=== PATIENT | female | born 1945 | race African-American/Black ===

== ENCOUNTER 2019-01-23 13:41 | Inpatient (IN) | payer MEDICARE ==
[~2019-01-23] VITALS: Ht 162.6 cm; Wt 105.7 kg
[2019-01-23] VITALS (9 sets, daily range): BP systolic 81–131; BP diastolic 45–75
--- NOTE | 2019-01-23 13:45 | NUR ---
PT PLACED ON CARESCAPE ON DOCUMENTED SETTINGS, ALARMS ARE ON AND FUNCTIONAL PTS TRACH PORTEX 8 IS SECURE, PT IN HF AWAKE SON AT BEDSIDE BS [employer]ORY SUPERVISOR OBTAINED REPLACED PTS EXSISTING INNER CANNULA WHICH WAS PART. OBSTRUCTED BMV HOB VENT PLUGGED INTO RED OUTLET Addendum: 01/23/19 at 1410 by Alethea Montanez RT 1345 CORRECT TIME
--- NOTE | 2019-01-23 13:45 | NUR ---
PT TO BED 10 VIA EMS, RT AT BEDSIDE. FAMILY AT BEDSIDE.
--- NOTE | 2019-01-23 14:01 | NUR ---
ER MD AT BEDSIDE TO EVALUATE PT AND SPEAK TO FAMILY
--- NOTE | 2019-01-23 14:19 | NUR ---
PCXR AT BEDSIDE
--- NOTE | 2019-01-23 14:34 | NUR ---
EKG IN PROGRESS
--- NOTE | 2019-01-23 14:48 | NUR ---
RT AT BEDSIDE
[2019-01-23 14:49] LABS: BASOPHILS # (AUTO) 0.1 K/uL (0.00-0.22); BASOPHILS % (AUTO) 1.1 % (0.0-2.0); EOSINOPHILS # (AUTO) 0.1 K/uL (0-0.4); EOSINOPHILS % (AUTO) 2.8 % (0.0-4.0); HEMATOCRIT 29.5 % (36-48); HEMOGLOBIN 9.4 g/dL (12.0-16.0); LYMPHOCYTES % (AUTO) 19.1 % (20.5-51.1); MEAN CORPUSCULAR HEMOGLOBIN 26 pg (27-31); MEAN CORPUSCULAR HGB CONC 32 g/dL (33-37); MEAN CORPUSCULAR VOLUME 80.3 fL (80-94); MONOCYTES # (AUTO) 0.6 K/uL (0.8-1.0); MONOCYTES % (AUTO) 10.9 % (1.7-9.3); NEUTROPHILS # (AUTO) 3.5 K/uL (1.8-7.7); NEUTROPHILS % (AUTO) 66.1 % (42.2-75.2); PLATELET COUNT (AUTO) 270 K/uL (140-450); RED BLOOD CELL COUNT(AUTO) 3.67 MIL/uL (4.20-5.40); WHITE BLOOD COUNT (AUTO) 5.3 K/uL (4.8-10.8)
[2019-01-23 15:02] LABS: ANION GAP 8.5 (8-16); CARBON DIOXIDE 31.2 mmol/L (21-32); CHLORIDE 104 mmol/L (98-107); CREATININE 0.7 mg/dL (0.6-1.3); GLUCOSE 114 mg/dL (74-106); POTASSIUM 3.7 mmol/L (3.5-5.1); SODIUM SERUM 140 mmol/L (136-145); UREA NITROGEN, BLOOD 24 mg/dL (7-18)
[2019-01-23 15:08] LABS: ALBUMIN 2.7 g/dL (3.4-5.0); ASPARTATE AMINOTRANSFERASE 43 U/L (15-37); TOTAL BILIRUBIN 0.9 mg/dL (0.0-1.0)
[2019-01-23] MEDS ORDERED: NITROGLYCERIN 2% 1 GM PKT TP ONE (15:25)
[2019-01-23] MEDS ORDERED: ASPIRIN 81 MG TAB.CHEW GT ONE (15:35)
--- NOTE | 2019-01-23 16:26 | NUR ---
DR. YUEN AT BEDSIDE TO UPDATE PT AND PT'S ON PLAN OF CARE. PT SUCTIONED, TOLERATED WELL.
[2019-01-23 16:47] LABS: APPEARANCE,URINE CLEAR (CLEAR); BILIRUBIN,URINE NEGATIVE (NEGATIVE); BLOOD, URINE 1+ (NEGATIVE); COLOR,URINE YELLOW (YELLOW); LEUKOCYTE ESTERASE ,URINE NEGATIVE (NEGATIVE); NITRITE, URINE NEGATIVE (NEGATIVE); PH,URINE 7.5 (5.0-9.0); UGLUCOSE NEGATIVE (NEGATIVE)
[2019-01-23 16:49] LABS: RBC,URINE 3-10 (FEW) /HPF (0-5); WBC,URINE 0-5 (RARE) /HPF (0-5)
[2019-01-23] MEDS ORDERED: DOCUSATE SODIUM 100 MG GELCAP PO PRN ×2 (16:50→17:30)
[2019-01-23] MEDS ORDERED: ONDANSETRON 4 MG/2 ML VIAL IM/IVP PRN (16:50)
[2019-01-23] MEDS ORDERED: FUROSEMIDE 20 MG/2 ML VIAL IVP ONE (16:55)
[2019-01-23] MEDS ORDERED: HEPARIN PER PHARMACY MC PRN (17:00)
[2019-01-23] MEDS ORDERED: hePARIN / DEXT 5% PREMIX 250 ML IV SCH ×2 (17:00→18:00)
[2019-01-23] MEDS ORDERED: ALBUTEROL SULFATE/IPRATROPIU 3 ML SOL IH PRN (17:00)
[2019-01-23] MEDS ORDERED: FUROSEMIDE 40 MG/4 ML VIAL IVP SCH (17:10)
[2019-01-23 17:16] LABS: PROTHROMBIN TIME 11.8 secs (10.8-13.4)
[2019-01-23] MEDS ORDERED: DOCU-299 PO (17:21)
[2019-01-23] MEDS ORDERED: LANS15EC28 GT (17:21)
[2019-01-23] MEDS ORDERED: PRO5 GT (17:21)
[2019-01-23] MEDS ORDERED: METO10TA10 GT (17:21)
[2019-01-23] MEDS ORDERED: KEP500L GT (17:21)
--- NOTE | 2019-01-23 17:25 | NUR ---
PT EVALUATED BY DR. GRANT. ADMINISTERED LASIX 40 MG IV X [address] GRANT VERBAL ORDER. LASIX 20 MG IV NOT GIVEN PER DR. GRANT VERBAL ORDER.
[2019-01-23] MEDS ORDERED: NITROGLYCERIN 0.4 MG TAB SL ONE (17:30)
[2019-01-23 17:35] LABS: PHOSPHORUS 3.8 mg/dL (2.5-4.9); THYROID STIMULATING HORMONE 3.51 uIU/mL (0.34-3.74)
--- NOTE | 2019-01-23 18:30 | NUR ---
RECEIVED PATIENT FROM MANAGER AGRICULTURE, HARLAN, FOR CONTINUITY OF CARE. PATIENT IS AAOX4, ABLE TO MAKE NEEDS KNOWN. SKIN INTACT, PERIPHERAL IV SITE TO L. FA 22 GAUAGE, ASYMPTOMATIC AND PATENT. TRACH TO VENT, BREATHING EVEN AND UNLABORED. SR ON MONITOR. SHE HAS J TUBE IN PLACE. TRUONG CATHETER IN PLACE. NO SIGNS OF DISTRESS NOTED, HOB IS 30 DEGREES, SAFETY PRECAUTIONS AND ALARMS IN PLACE. CALL LIGHT WITHIN REACH. SON AT BEDSIDE. WILL CONTINUE TO MONITOR
--- NOTE | 2019-01-23 18:34 | NUR ---
PT WAS TRANSFER FROM ER TO ICU 7 , AMBU BAG , NO INCIDENTS OR DISTRESS.PT WAS PLACED ON THE VENT, VENT CK DONE, NO DISTRESS NOTED, SON AT BED SIDE
--- NOTE | 2019-01-23 18:39 | NUR ---
Patient will be admitted to care of ICU. Admited to DR. FOUNTAIN. Will go to room 7. Belongings list completed. Report to PRICE KAMARA. PT CYNTHIA FRIED AT BEDSIDE.
--- NOTE | 2019-01-23 19:30 | NUR ---
SBAR REPORT RECEIVED FROM DAY RN, PT STABLE, TRACH TO VENT, NSR ON THE MONITOR. ABLE TO FOLLOW SIMPLE COMMANDS. PITTING EDEMA TO ALL OVER HER BODY, TRUONG CATHETER INTACT AND DRAINING WELL, GT INTACT AND CLAMPED AT THIS TIME. PT COMFORTABLE, US TECH WILL BE HERE SHORTLY TO DO ABDOMEN US. WILL CONTINUE TO MONITOR CLOSELY.
[2019-01-23] MEDS: ALBUTEROL SULFATE/IPRATROPIU 3 ML SOL IH SCH (19:55)
[2019-01-23] MEDS: METOPROLOL 25 MG TAB PO SCH (21:00)
--- NOTE | 2019-01-23 21:00 | NUR ---
US COLON IS AT THE BEDSIDE, CALLED PT'S SON AND ASSISTED TO FIND OUT THE STATUS OF PNEUMO VAC AND FLU VAC. LEFT A VOICE MAIL TO PT'S SON'S NICHOLE CELL PHONE. ASSISTED STATED THAT THEY DO NOT HAVE THE INFORMATION
[2019-01-23] MEDS: levETIRAcetam 100 MG/ML ORASYR GT SCH (21:11)
[2019-01-23] MEDS: NACL 0.9% 1,000 ML IV SCH (21:11)
[2019-01-23] MEDS: METOCLOPRAMIDE 10 MG TAB GT SCH (21:12)
--- NOTE | 2019-01-23 22:15 | NUR ---
DR. FAJARDO CALLED AND NOTIFIED OF ELEVATED TROPONIN OF 0.190. NO NEW ORDER AT THIS TIME, WILL CONTINUE TO MONITOR CLOSELY.
[2019-01-23] MEDS ORDERED: LACTULOSE 20 GM/30 ML UDC PO SCH (22:30)
[2019-01-24] VITALS (20 sets, daily range): BP systolic 90–138; BP diastolic 57–82
[2019-01-24] MEDS: LORazepam 2 MG/ML VIAL IM/IVP PRN (00:18)
--- NOTE | 2019-01-24 01:00 | NUR ---
PT WAS AGITATED, PULLING OFF TUBES AT 0005, ATIVAN 1MG IVP GIVEN AT 0018, PT ASLEEP, CASIE AND COOPERATIVE AT THIS 0100 TIME.
--- NOTE | 2019-01-24 02:41 | NUR ---
VSS, NO S/S OF ANY ACUTE DISTRESS. WILL CONTINUE TO MONITOR CLOSELY.
[2019-01-24 03:42] LABS: PROTHROMBIN TIME 12.6 secs (10.8-13.4)
--- NOTE | 2019-01-24 05:03 | NUR ---
PT STABLE, VSS. ASLEEP. WILL CONTINUE TO MONITOR CLOSELY.PTT 54.1, NO CHANGES IN HEPARIN DRIP. CONTINUE TO 900UNITS/ HR.
--- NOTE | 2019-01-24 05:25 | NUR ---
PT'S PTT 54.1, PT ON HEPARIN DRIP.
[2019-01-24] MEDS: LANSOPRAZOLE 30 MG CAPDR GT SCH (05:36)
[2019-01-24] MEDS: METOCLOPRAMIDE 10 MG TAB GT SCH (05:36)
[2019-01-24 05:49] LABS: ANION GAP 10.7 (8-16); CARBON DIOXIDE 30.1 mmol/L (21-32); CHLORIDE 105 mmol/L (98-107); CREATININE 0.6 mg/dL (0.6-1.3); GLUCOSE 89 mg/dL (74-106); POTASSIUM 3.8 mmol/L (3.5-5.1); SODIUM SERUM 142 mmol/L (136-145); UREA NITROGEN, BLOOD 22 mg/dL (7-18)
[2019-01-24 05:50] LABS: MAGNESIUM 1.8 mg/dL (1.8-2.4); PHOSPHORUS 3.9 mg/dL (2.5-4.9)
[2019-01-24 06:07] LABS: BASOPHILS # (AUTO) 0.1 K/uL (0.00-0.22); BASOPHILS % (AUTO) 2.9 % (0.0-2.0); EOSINOPHILS # (AUTO) 0.1 K/uL (0-0.4); EOSINOPHILS % (AUTO) 2.7 % (0.0-4.0); HEMATOCRIT 28.4 % (36-48); HEMOGLOBIN 9.1 g/dL (12.0-16.0); LYMPHOCYTES # (AUTO) 1.1 K/uL (2.5-16.5); LYMPHOCYTES % (AUTO) 23.3 % (20.5-51.1); MEAN CORPUSCULAR HEMOGLOBIN 26 pg (27-31); MEAN CORPUSCULAR HGB CONC 32 g/dL (33-37); MEAN CORPUSCULAR VOLUME 79.9 fL (80-94); MONOCYTES # (AUTO) 0.7 K/uL (0.8-1.0); MONOCYTES % (AUTO) 14.1 % (1.7-9.3); NEUTROPHILS # (AUTO) 2.8 K/uL (1.8-7.7); PLATELET COUNT (AUTO) 250 K/uL (140-450); RED BLOOD CELL COUNT(AUTO) 3.55 MIL/uL (4.20-5.40); WHITE BLOOD COUNT (AUTO) 4.9 K/uL (4.8-10.8)
[2019-01-24] MEDS: ALBUTEROL SULFATE/IPRATROPIU 3 ML SOL IH SCH ×3 (06:29→19:18)
--- NOTE | 2019-01-24 06:29 | NUR ---
RECEIVED PT ON CARESCAPE ON DOCUMENTED SETTINGS, ALARMS ARE ON AUDIBLE, PTS TRACH PORTEX 8 IS SECURE, PTIN HF ASLEEP ,HHN GIVEN I\L WITH 3 MG DUONEB, BMV HOB , VENT PLUGGED INTO RED OUTLET
--- NOTE | 2019-01-24 08:00 | NUR ---
PATIENT AWAKE, ALERT AND ORIENTED TO PERSON, PLACE, SITUATION AND TIME. WITH TRACHEOSTOMY TO VENTILATOR AC 12 TIDAL VOLUME 500 FIO2 30% PEEP 5, CLEAR BREATH SOUNDS ON ALL LUNG KAYE ON AUSCULTATION, SINUS RHYTHM ON MONITOR, WITH GTUBE AND PATIENT RECEIVEING JEVITY 40 ML/HR. GASTRIC RESIDUAL CHECKED AND NO ASPIRATES, ABDOMEN ROUND, SOFT, WITH TRUONG CATHETER YELLOW CLEAR URINE NOTED IN THE DRAINAGE BAG, SKIN INTACT WITH GENERALIZED NON PITTING EDEMA, PERIPHERAL LINES: GAUGE 20 AT RIGHT ARM WITH NORMAL SALINE INFUSING 10ML/HR., GAUGE 18 RIGHT HAND HEPARING DRIP INFUSING 900 UNITS/HR. BOTH SITES ASYMPTOMATIC. CALL [facility] WITHIN REACH
--- NOTE | 2019-01-24 08:37 | NUR ---
PATIENT HAS BEEN SCREENED AND CATEGORIZED HIGH NUTRITION RISK. PATIENT WILL BE SEEN WITHIN 1-2 DAYS OF ADMISSION. 01/24/19-01/25/[address]
[2019-01-24] MEDS ORDERED: NON-FORMULARY ITEM (Lansoprazole* (Prevacid 24Hr*) 30 MG) GT SCH (09:00)
--- NOTE | 2019-01-24 09:00 | NUR ---
PATIENT COMPLAINING OF GENERALIZED BODY PAIN ADULT SCORE=4 AND PATIENT ASKED FOR PAIN MEDICATION. WILL MEDICATE WITH PRN NORCO AND CONTINUE TO MONITOR(SEE PAIN REASSESSMENT)
[2019-01-24] MEDS: LISINOPRIL 5 MG TAB PO SCH (09:04)
[2019-01-24] MEDS: ASPIRIN 81 MG TAB.CHEW PO SCH (09:04)
[2019-01-24] MEDS: HYDROcodone/APAP 5/325 MG 1 TAB TAB PO PRN (09:04)
[2019-01-24] MEDS: levETIRAcetam 100 MG/ML ORASYR GT SCH ×2 (09:05→20:35)
[2019-01-24] MEDS: METOPROLOL 25 MG TAB PO SCH ×2 (09:05→22:03)
[2019-01-24] MEDS: FUROSEMIDE 40 MG/4 ML VIAL IVP SCH ×2 (09:06→17:26)
[2019-01-24 10:56] LABS: CHOL/HDL RATIO 2.8 (1-4.5)
--- NOTE | 2019-01-24 11:23 | NUR ---
CHANGED PT OT A/C PRVC PT HAD PEAK PRESSURES OF 56 RR 12 VT 500 PEEP 5 I TIME .80 PP WENT DOWN
--- NOTE | 2019-01-24 11:50 | NUR ---
DR. CUEVAS ROUNDED AND ORDERED TO DISCONTINUE HEPARIN DRIP
--- NOTE | 2019-01-24 12:00 | NUR ---
DR. CAMPBELL HERE FOR ROUNDS, UPDATED OF PATIENT'S STATUS. CONTINUE SAME PLAN OF CARE PER DR. CAMPBELL
[2019-01-24] MEDS: METOCLOPRAMIDE 10 MG/10 ML SYRP UDC PO SCH ×3 (13:00→20:35)
--- NOTE | 2019-01-24 13:08 | NUR ---
Sawmilling Operator Note: Per Mabel from [facility] , patient is not on a 7 day bed hold. She told me her groundwater programs director does not want to accept patient back upon discharge because patient's family is problematic. Mabel stated she will check with her deputy administrator if they will accept patient upon discharge and let me know.
[2019-01-24] MEDS ORDERED: LACTULOSE 20 GM/30 ML UDC PO SCH (14:00)
--- NOTE | 2019-01-24 14:02 | NUR ---
01/24/19 RD INITIAL ASSESSMENT COMPLETED PLEASE REFER TO NUTRITION ASSESSMENT UNDER CARE ACTIVITY FOR ESTIMATED NUTRITIONAL NEEDS. 1. RECOMMEND VITAL 1.2 AT 60 ML/HR AND 30 ML WATER FLUSH Q8H -THIS WILL PROVIDE A VOLUME OF 1440 ML, 1728 KCAL, 108 GRAM PROTEIN, AND 1258 ML OF FLUID. IT MEETS 100% OF THE ENERGY NEED AND 100% OF THE PROTEIN NEED. 2. RD TO FOLLOW-UP 2-3 DAYS, HIGH RISK AARON JIN, LISS
--- NOTE | 2019-01-24 15:00 | NUR ---
DR. HOUSTON HERE FOR ROUNDS. INFORMED OF DR. CAMPBELL'S RECOMMENDATION FOR LASIX DRIP AND ALDACTONE. DR. HOUSTON ORDERED ABG NOW, ST EVALUATION AND CHEST XRAY FOR TOMORROW
--- NOTE | 2019-01-24 15:18 | NUR ---
G REPORTED TO DR CHRISTIAN NO CHANGES
--- NOTE | 2019-01-24 15:51 | NUR ---
DR. HOUSTON BUILDING SURVEYOR CALLED THIS RN AND ORDERS RECEIVED DIAMOX 300 MGS PER GTUBE BID AND ONE DOSE NOW-READBACK AND VERIFIED
[2019-01-24] MEDS ORDERED: acetaZOLAMIDE 250 MG TAB PO SCH ×2 (15:55→21:00)
--- NOTE | 2019-01-24 15:59 | NUR ---
PAGED DR. HOUSTON THROUGH HIS EXCHANGE SPOKE TO KAILA. REGARDING NO DIAMOX 250 MG IN PHARMACY
--- NOTE | 2019-01-24 16:05 | NUR ---
DR. HOUSTON CALLED BACK AND CHANGE ORDER TO START DIAMOX 250 MGS PER GTUBE NOW AND DIAMOX 250 MGS BID VIA GTUBE-READBACK AND VERIFIED
[2019-01-24] MEDS ORDERED: acetaZOLAMIDE 250 MG TAB GT SCH ×2 (16:10→16:55)
--- NOTE | 2019-01-24 16:23 | NUR ---
PM CARE, ORAL CARE, CATHETER CARE RENDERED. ROUTINE REPOSITIONING. PATIENT TOLERATED
[2019-01-24] MEDS: NACL 0.9% 1,000 ML IV SCH (17:26)
--- NOTE | 2019-01-24 17:56 | NUR ---
TELEPHONED KATLYN MORALES TO ASK FOR PATIENT'S PNEUMONIA AND FLU VACCINE HISTORY BUT WAS ADVISED TO CALL TOMORROW DURING MEDICAL RECORDS OFFICE HOURS
--- NOTE | 2019-01-24 19:12 | NUR ---
REPORT GIVEN TO ICU NIGHT RN
--- NOTE | 2019-01-24 19:17 | NUR ---
RECEIVED REPORT FROM MORNING SHIFT RN, DANUTA, FOR CONTINUITY OF CARE. PT IS NONVERBAL AT BASELINE, ABLE TO MOUTH WORDS AND MAKE NEEDS KNOWN. LUNG SOUND CLEAR/DIMINISHED ON UPPER/LOWER BILATERAL LOBES. ETT TO VENT, FIO2=30, QO=928, RR=12, Tinsp=0.80, PEEP=5, PMAX=2. RT HANI AT BEDSIDE TO SEE PT, SR ON ACID TENDER. BOWEL SOUND ACTIVE X4, ABODMEN IS LARGE/ROUND. GTUBE INTACT, NO RESIDUAL, JEVITY 1.2 AT 60ML/HR. TRUONG IN PLACE. 20 GAUGE PIV ON RIGHT ARM, AND 18 GAUGE RIGHT HAND PIV INFUSING 10CC/HR OF NS. TRUONG CATH IN PLACE, URINE IS CLEAR/YELLOW IN COLOR. SKIN INTACT, EDEMATOUS WITH 2+ PITTING EDEMA ON BILATERAL LEGS/FEET. HOB ELEVATED ABOVE 30 DEG, STANDARD PRECAUTIONS. AFEBRILE, TEMP 97.2, QX=792/76, HR=77, RR=14, SATING 97%.
[2019-01-24] MEDS: ATORVASTATIN 20 MG TAB PO SCH (20:36)
[2019-01-24] MEDS: acetaZOLAMIDE 250 MG TAB GT SCH (20:36)
--- NOTE | 2019-01-24 21:30 | NUR ---
BED BATH AND VAP ORAL CARE PROVIDED TO PATIENT, REPOSITIONED. PT IS ABLE TO MAKE NEEDS KNOWN MOUTHING WORDS OR WRITING ON A CLIPBOARD. APPEARS CALM AND RELAXED AT THIS TIME.
--- NOTE | 2019-01-24 21:54 | NUR ---
CALLED DR. SHAH, UPDATED ON PT CONDITION, STATED OK TO GIVE HEPARIN AND LOPRESSOR. WILL CARRY OUT.
[2019-01-24] MEDS: MORPHINE SULFATE 2 MG/ML SYR IVP PRN (22:24)
[2019-01-25] VITALS (12 sets, daily range): BP systolic 107–124; BP diastolic 58–86
--- NOTE | 2019-01-25 00:38 | NUR ---
BED BATH PROVIDED AFTER LARGE, LOOSE STOOL BM. FULL BED LINEN CHANGE WITH FRESH PADS PROVIDED. REPOSITIONED, HOB AND BILATERAL LEGS ELEVATED. VSS, SUCTIONING PROVIDED X2. VAP ORAL CARE. TRUONG CATH CARE KIT PERFORMED. PT IS SLEEPING AT THIS TIME, CALL LIGHT WITHIN REACH.
--- NOTE | 2019-01-25 01:55 | NUR ---
EMPTIED 1000ML URINE OUTPUT, URINE IS YELLOW-LIGHT KAYA IN COLOR.
--- NOTE | 2019-01-25 03:11 | NUR ---
PT AWAKENED AND REQUESTED SUCTIONING X2, REPOSITIONED W/ PILLOW SUPPORT ON LEFT SIDE. NS INFUSING AT 10CC/HR, AND JEVITY 1.2 AT 60ML/HR TO GTUBE, NO RESIDUAL NOTED.
--- NOTE | 2019-01-25 05:15 | NUR ---
MALI AT BEDSIDE TO DRAW LABS.
[2019-01-25] MEDS: LANSOPRAZOLE 30 MG CAPDR GT SCH (05:28)
[2019-01-25] MEDS: METOCLOPRAMIDE 10 MG/10 ML SYRP UDC PO SCH ×3 (05:28→20:40)
[2019-01-25 06:14] LABS: BASOPHILS # (AUTO) 0.1 K/uL (0.00-0.22); BASOPHILS % (AUTO) 1.5 % (0.0-2.0); EOSINOPHILS % (AUTO) 0.8 % (0.0-4.0); HEMATOCRIT 29.3 % (36-48); HEMOGLOBIN 9.2 g/dL (12.0-16.0); LYMPHOCYTES % (AUTO) 18.2 % (20.5-51.1); MEAN CORPUSCULAR HEMOGLOBIN 25 pg (27-31); MEAN CORPUSCULAR HGB CONC 32 g/dL (33-37); MEAN CORPUSCULAR VOLUME 79.9 fL (80-94); MONOCYTES # (AUTO) 0.6 K/uL (0.8-1.0); MONOCYTES % (AUTO) 11.2 % (1.7-9.3); NEUTROPHILS # (AUTO) 3.9 K/uL (1.8-7.7); NEUTROPHILS % (AUTO) 68.3 % (42.2-75.2); PLATELET COUNT (AUTO) 271 K/uL (140-450); RED BLOOD CELL COUNT(AUTO) 3.67 MIL/uL (4.20-5.40); RED CELL DISTRIBUTION WIDTH 19.4 % (11.6-13.7); WHITE BLOOD COUNT (AUTO) 5.8 K/uL (4.8-10.8)
[2019-01-25] MEDS: ALBUTEROL SULFATE/IPRATROPIU 3 ML SOL IH SCH ×3 (06:44→19:41)
[2019-01-25 07:35] LABS: ANION GAP 11.6 (8-16); CARBON DIOXIDE 29.8 mmol/L (21-32); CHLORIDE 105 mmol/L (98-107); CREATININE 0.8 mg/dL (0.6-1.3); GLUCOSE 103 mg/dL (74-106); POTASSIUM 3.4 mmol/L (3.5-5.1); SODIUM SERUM 143 mmol/L (136-145); UREA NITROGEN, BLOOD 25 mg/dL (7-18)
--- NOTE | 2019-01-25 07:35 | NUR ---
GAVE REPORT TO MORNING SHIFT PRICE TIPTON.
--- NOTE | 2019-01-25 07:36 | NUR ---
RECEIVED REPORT FROM LON THRASHER
[2019-01-25 07:39] LABS: PHOSPHORUS 4.4 mg/dL (2.5-4.9)
[2019-01-25] MEDS ORDERED: PROBIOTIC SCREEN 1 EA MISC MC PRN (08:00)
--- NOTE | 2019-01-25 08:00 | NUR ---
PATIENT AWAKE, ALERT AND ORIENTED TO PERSON, PLACE, SITUATION AND TIME. WITH TRACHEOSTOMY TO VENTILATOR AC/PRVC 12 TIDAL VOLUME 500 FIO2 30% PEEP 5, CLEAR BREATH SOUNDS ON ALL LUNG KAYE ON AUSCULTATION, SINUS RHYTHM ON MONITOR, WITH GTUBE AND PATIENT RECEIVEING JEVITY 60 ML/HR. GASTRIC RESIDUAL CHECKED AND NO ASPIRATES, ABDOMEN ROUND, SOFT, WITH TRUONG CATHETER YELLOW CLEAR URINE NOTED IN THE DRAINAGE BAG, SKIN INTACT WITH GENERALIZED NON PITTING EDEMA, PERIPHERAL LINES: GAUGE 20 AT LEFTT ARM WITH NORMAL SALINE INFUSING 10ML/HR., GAUGE 18 RIGHT HAND HEPARING DRIP INFUSING 900 UNITS/HR. BOTH SITES ASYMPTOMATIC. CALL [facility] WITHIN REACH
[2019-01-25] MEDS: ASPIRIN 81 MG TAB.CHEW PO SCH (08:36)
[2019-01-25] MEDS: ACETAMINOPHEN 325 MG TAB PO PRN ×2 (08:36→18:07)
[2019-01-25] MEDS: LISINOPRIL 5 MG TAB PO SCH (08:37)
[2019-01-25] MEDS: METOPROLOL 25 MG TAB PO SCH ×2 (08:37→20:39)
[2019-01-25] MEDS: SPIRONOLACTONE 25 MG TAB PO SCH (08:37)
[2019-01-25] MEDS: levETIRAcetam 100 MG/ML ORASYR GT SCH ×2 (08:38→20:40)
[2019-01-25] MEDS: LACTOBACILLUS RHAMNOSUS GG 1 EACH CAP PO SCH (08:39)
[2019-01-25] MEDS: acetaZOLAMIDE 250 MG TAB GT SCH ×2 (08:47→20:39)
[2019-01-25] MEDS: FUROSEMIDE 40 MG/4 ML VIAL IVP SCH ×2 (08:47→17:07)
--- NOTE | 2019-01-25 09:20 | NUR ---
DR. REYES AT BEDSIDE EXPLAINING ABOUT PATIENT'S PLAN OF CARE TO PATIENT'S SON
--- NOTE | 2019-01-25 09:31 | NUR ---
DR. HOUSTON AT BEDSIDE
[2019-01-25] MEDS ORDERED: POTASSIUM CHLORIDE 20% 40 MEQ/15 ML UDC GT SCH (10:00)
--- NOTE | 2019-01-25 10:30 | NUR ---
PHYSICAL THERAPIST AT BEDSIDE
--- NOTE | 2019-01-25 11:42 | NUR ---
CALLED KATLYN TEXARKANA FOR PATIENT'S POLST, PER AARON FROM MEDICAL RECORDS SHE WILL FAX A COPY.
[2019-01-25] MEDS ORDERED: LACTULOSE 20 GM/30 ML UDC PO SCH (11:45)
--- NOTE | 2019-01-25 11:48 | NUR ---
PER [facility] RN NO RECORDS FOR PNEUMONIA AND FLU VACCINES DUE TO PATIENT WAS ON ANTIBIOTIC.
--- NOTE | 2019-01-25 11:50 | NUR ---
Faxed clinicals to Mary from [facility].
--- NOTE | 2019-01-25 12:16 | NUR ---
FOLLOWED UP PHARMACY STAFF JESSICA TO SEND A STOCK OF [email or web address]
[2019-01-25] MEDS: PIPER/TAZO 3.375GM/D5W PREMIX 50 ML IV SCH ×3 (12:31→23:13)
--- NOTE | 2019-01-25 16:00 | NUR ---
PM CARE RENDERED, ORAL CARE, CATHETER CARE AND ROUTINE REPOSITIONING. PATIENT TOLERATED
--- NOTE | 2019-01-25 16:51 | NUR ---
PATIENT'S SON CORKY AT BEDSIDE
[2019-01-25] MEDS: NACL 0.9% 1,000 ML IV SCH (17:08)
--- NOTE | 2019-01-25 18:28 | NUR ---
PAGED PT DIRECTOR BY ICU CN TO FOLLOW UP SPEECH THERAPIST NOT YET HERE. UPDATED PATIENT'S SON CORKY. ALSO ACCORDING TO SON HE WILL FIND OUT TOMORROW REGARDING PATIENT'S FLU AND PNEUMONIA VACCINE HISTORY
--- NOTE | 2019-01-25 18:55 | NUR ---
SPEECH THERAPIST AT BEDSIDE. TELEPHONED PATIENT'S SON CORKY TO UPDATE
--- NOTE | 2019-01-25 18:59 | NUR ---
REHAB IS HERE TO DO A SWALLOW EVAL. PLACED PASSY LISA VALVE ON PATIENT AND LET AIR OUIT OF THE CUFF..PATIENT STARTED TO TALK AT THIS TIME.
--- NOTE | 2019-01-25 19:30 | NUR ---
RECEIVED REPORT FROM MORNING RN FOR CONTINUITY OF CARE. VS STABLE AT THIS TIME. PT DOES NOT APPEAR TO BE EXPERIENCING ANY DISCOMFORT. EYE OPENING SPONTANEOUS. DENIES PAIN AT THIS TIME. PT ABLE TO MAKE NEEDS KNOWN AND TO FOLLOW COMMANDS. LUNG SOUNDS RHONCHI. PT TRACH TO VENT WITH SETTINGS: AC 12, FIO2 30%, TV 500 AND PEEP 5. NO SOB NOTED. S1+S2 HEARD. PULSES ARE PALPABLE IN ALL EXTREMITIES. SR ON MONITOR. ABDOMEN ROUND, SOFT AND NONDISTENDED. GTUBE IN PLACE. TUBE FEEDING RUNNING AT 60ML/HR WITH NO RESIDUAL. BS ACTIVE IN ALL QUADRANTS. TRUONG CATHETER IN PLACE. DRAINING CLEAR AND YELLOW URINE. RECEIVED PT WITH PERIPHERAL IV ACCESS ON LEFT FOREARM 20G AND RIGHT HAND 18G. LINES ARE PATENT, INTACT, AND ASYMPTOMATIC. HOB AT 30 DEGREES. ALL SAFETY PRECAUTIONS ARE IN PLACE. WILL CONTINUE TO MONITOR PT.
--- NOTE | 2019-01-25 19:32 | NUR ---
* ST NOTE * Pt seen at bedside w/nsg, RT & grandson present. Pt alert, cooperative and engaged throughout session, reporting no c/o pain at this time. RT suctioning pt at this time. RT then deflating pt's trach cuff and placing PMV in place for first time since admission to [facility] at this time. Pt tolerating PMV well, and requiring maximal verbal, tactile & visual cueing to demonstrate phonation via verbal speech. Pt then presenting with expressive language via verbal speech at the word and phrase levels. Bedside dysphagia and oral mechanism exams completed. See evaluation report for further details. Pt thus tolerating 2/2 alternating PO trials of puree apple sauce as well as 3/3 alternating PO trials of nectar-thickened apple juice, all 3-5 CCs at a time via a spoon w/o s/s of aspiration. Pt however reporting difficulty breathing at this time, w/clinician observing pt's 02 saturation decreasing to 84-86. RT then increasing pt's vent settings to 100%, but pt still unable to return 02 sats up to 90<. RT thus removing PMV and re-inflating pt's trach cuff at this time. Pt, grandson, & nsg education completed re: pt appearing to tolerate puree textures w/NTL at this time w/only mild dysphagia, but cannot tolerate trach cuff deflation nor PMV at this time, which are required for pt to safely eat/drink PO, w/pt, grandson & nsg agreeable. Pt, grandson & nsg education completed re: clinician recommending beginning trach cuff deflation & PMV trials to aid pt in building tolerance of PMV to at least [address] in order for pt to safely begin eating/drinking PO, w/pt, caregiver/nsg and grandson verbalizing understanding and agreement w/clinician's recommendations. ST to follow up 1-2x/week for 1 week to address cuff deflation & PMV trials to further assess pt's readiness for PO intake. Pt, grandson, & caregivers/nsg education completed re: results of evaluation; benefits of receiving skilled [employer] services; POC; and prognosis for improvement; with pt, grandson & caregivers/nsg verbalizing understanding and agreement w/clinician's recommendations. Recommend: - CONTINUE NPO - BEGIN TRACH CUFF DEFLATION & PMV TOLERANCE TRIALS TOLERATED - PT MAY BEGIN EATING/DRINKING PO PENDING TRACH CUFF DEFLATION & PMV TOLERANCE FOR AT LEAST 1 HOUR - Suction PRN - Provide oral hygiene care at least twice/day in AM & PM ST to ff 1-2x/week for 1 week to further address pt's tolerance of cuff deflation & PMV to assess readiness for PO intake. NOMS Level CK Time In/Out 18:30 - 19:15
[2019-01-25] MEDS: HYDROcodone/APAP 5/325 MG 1 TAB TAB PO PRN (19:42)
--- NOTE | 2019-01-25 20:00 | NUR ---
DR. CUEVAS AT BEDSIDE TO SEE PT.
--- NOTE | 2019-01-25 20:26 | NUR ---
CALLED RESIDENT DOCTOR, SPOKE WITH DR. SHAH. CLARIFIED THE HEPARIN ORDER AND REPORTED LAST PTT. PER DR. SHAH HOLD HEPARIN FOR NOW.
[2019-01-25] MEDS: ATORVASTATIN 20 MG TAB PO SCH (20:39)
[2019-01-25] MEDS: LACTULOSE 20 GM/30 ML UDC PO SCH (20:40)
[2019-01-25] MEDS: LORazepam 2 MG/ML VIAL IM/IVP PRN (22:47)
--- NOTE | 2019-01-25 23:20 | NUR ---
PT TURNED AND REPOSITIONED. REQUESTING TO BE SUCTIONED. NON WAS ASPIRATED THROUGH IN-LINE SUCTIONING OF TRACH. RESPIRATIONS REMAIN TO BE EVEN AND UNLABORED. OXYGEN SATURATION WNL. KEPT HOB AT 30 DEGREES. WILL CONTINUE TO MONITOR PT.
[2019-01-26] VITALS (7 sets, daily range): BP systolic 108–120; BP diastolic 61–75
--- NOTE | 2019-01-26 00:54 | NUR ---
PT AFEBRILE. TURNED AND REPOSITIONED. ORAL CARE PROVIDED TO PT. RESPIRATIONS REMAIN EVEN AND UNLABORED. ALL SAFETY PRECAUTIONS REMAIN IN PLACE. WILL CONTINUE TO MONITOR PT.
--- NOTE | 2019-01-26 01:50 | NUR ---
PT HAD 1 LARGE BM THAT IS SOFT AND BROWN IN COLOR. PT CLEANED AND MORNING CARE HAS BEEN PROVIDED. PT SUCTIONED. NO SECRETIONS ASPIRATED. WILL CONTINUE TO MONITOR PT.
--- NOTE | 2019-01-26 04:20 | NUR ---
NO BM NOTED AT THIS TIME. VS REMAINS STABLE. SR ON MONITOR. PT DENIES ANY DISCOMFORT AT THIS TIME AND DENIES ANY PAIN. ALL SAFETY PRECAUTIONS ARE IN PLACE.
[2019-01-26] MEDS: PIPER/TAZO 3.375GM/D5W PREMIX 50 ML IV SCH ×4 (05:44→23:30)
[2019-01-26] MEDS: METOCLOPRAMIDE 10 MG/10 ML SYRP UDC PO SCH ×3 (05:44→20:50)
[2019-01-26] MEDS: LANSOPRAZOLE 30 MG CAPDR GT SCH (05:45)
[2019-01-26 06:11] LABS: ANION GAP 10.7 (8-16); CARBON DIOXIDE 30.5 mmol/L (21-32); CHLORIDE 105 mmol/L (98-107); CREATININE 0.9 mg/dL (0.6-1.3); GLUCOSE 123 mg/dL (74-106); POTASSIUM 3.2 mmol/L (3.5-5.1); SODIUM SERUM 143 mmol/L (136-145); UREA NITROGEN, BLOOD 24 mg/dL (7-18)
[2019-01-26 06:16] LABS: MAGNESIUM 2.1 mg/dL (1.8-2.4); PHOSPHORUS 4.6 mg/dL (2.5-4.9)
[2019-01-26 06:21] LABS: BASOPHILS # (AUTO) 0.1 K/uL (0.00-0.22); BASOPHILS % (AUTO) 1.4 % (0.0-2.0); EOSINOPHILS # (AUTO) 0.2 K/uL (0-0.4); EOSINOPHILS % (AUTO) 3.6 % (0.0-4.0); HEMATOCRIT 29.8 % (36-48); HEMOGLOBIN 9.5 g/dL (12.0-16.0); LYMPHOCYTES # (AUTO) 0.8 K/uL (2.5-16.5); LYMPHOCYTES % (AUTO) 14.9 % (20.5-51.1); MEAN CORPUSCULAR HEMOGLOBIN 26 pg (27-31); MEAN CORPUSCULAR HGB CONC 32 g/dL (33-37); MEAN CORPUSCULAR VOLUME 80.7 fL (80-94); MONOCYTES # (AUTO) 0.6 K/uL (0.8-1.0); MONOCYTES % (AUTO) 11.4 % (1.7-9.3); NEUTROPHILS # (AUTO) 3.5 K/uL (1.8-7.7); NEUTROPHILS % (AUTO) 68.7 % (42.2-75.2); PLATELET COUNT (AUTO) 258 K/uL (140-450); RED BLOOD CELL COUNT(AUTO) 3.69 MIL/uL (4.20-5.40); RED CELL DISTRIBUTION WIDTH 18.8 % (11.6-13.7); WHITE BLOOD COUNT (AUTO) 5.1 K/uL (4.8-10.8)
--- NOTE | 2019-01-26 06:50 | NUR ---
RETURNED DR. GRANT'S CALL REGARDING ST EVAL RESULT. SPOKE WITH DR. PEREZ AND INFORMED HER REGARDING THE RESULT. PER DR. PEREZ SHE WILL PASS THE MESSAGE TO DR. GRANT
--- NOTE | 2019-01-26 06:59 | NUR ---
CALLED DR. GRANT TO CLARIFY THE K-RIDER ORDER. PT CURRENTLY ONLY HAVE PERIPHERAL IV ACCESS. POTASSIUM WITH LIDOCAINE WILL BE ORDERED INSTEAD.
[2019-01-26] MEDS ORDERED: KCL 20 MEQ/WATER INJ PREMIX 200 ML IV ONE (07:00)
[2019-01-26] MEDS: ALBUTEROL SULFATE/IPRATROPIU 3 ML SOL IH SCH ×3 (07:24→19:04)
--- NOTE | 2019-01-26 07:30 | NUR ---
RECEIVED PT FROM PM NURSE, PT SLEEPY BUT AROUSABLE. BEDSIDE MONITOR SHOWS SR. TRACH TO VENT, NO S/S OF RESPIRATORY DISTRESS NOTED. LUNG SOUND CLEAR. G-TUBE FEEDING TOLERATED WELL, 10 CC RESIDUAL NOTED. ABD LARGE, F/C IN PLACE WITH HAZY URINE NOTED. IC SITES TO LEFT FM AND RIGHT HAND, INTACT AND PATENT. CALL LIGHT IN REACH, WILL CONTINUE TO MONITOR PT, PT NONVERBAL BUT MOUTH WORDS, POC EXPLAINED TO PT, PT NODDED HER HEAD.
--- NOTE | 2019-01-26 07:34 | NUR ---
RECEIVED TRACH PT WITH A PORTEX 8 TRACH ON VENT. SETTINGS PRVC 12, VT 500, PEEP 5 , FIO2 30% AND Tinsp 0.80. PT IS ASLEEP AT THIS TIME NOT IN ANY DISTRESS. VENT IS PLUGGED INTO A RED OUTLET WITH ALARMS ON AND FUNCTIONING. AMBU BAG IS PRESENT NEAR BEDSIDE. TRACH IS SECURE WITH A PATENT AIRWAY. WILL CONTINUE TO MONITOR.
[2019-01-26] MEDS ORDERED: POTASSIUM CHLORIDE 40 MEQ, LIDOCAINE 1% 25 MG in NACL 0.9% 250 ML IV SCH (08:00)
[2019-01-26] MEDS: MORPHINE SULFATE 2 MG/ML SYR IVP PRN (08:24)
[2019-01-26] MEDS: levETIRAcetam 100 MG/ML ORASYR GT SCH ×2 (08:29→20:51)
[2019-01-26] MEDS: LISINOPRIL 5 MG TAB PO SCH (08:31)
[2019-01-26] MEDS: ASPIRIN 81 MG TAB.CHEW PO SCH (08:31)
[2019-01-26] MEDS: LACTULOSE 20 GM/30 ML UDC PO SCH ×2 (08:31→20:50)
[2019-01-26] MEDS: LACTOBACILLUS RHAMNOSUS GG 1 EACH CAP PO SCH (08:32)
[2019-01-26] MEDS: METOPROLOL 25 MG TAB PO SCH ×2 (08:32→20:51)
[2019-01-26] MEDS: POTASSIUM CHLORIDE 8 MEQ TABER PO SCH (08:32)
[2019-01-26] MEDS: SPIRONOLACTONE 25 MG TAB PO SCH (08:33)
[2019-01-26] MEDS: acetaZOLAMIDE 250 MG TAB GT SCH ×2 (08:33→20:51)
[2019-01-26] MEDS: FUROSEMIDE 40 MG/4 ML VIAL IVP SCH ×4 (08:33→23:30)
--- NOTE | 2019-01-26 08:52 | NUR ---
Machine Cell Tuber Note: Late entry for 01/25/19: Kodi Monroe from [facility] , her sales administrator told her that they are not accepting patient back because patient's family is difficult. She stated they had not informed patient's family they are not accepting patient upon discharge. I requested someone from their facility contact patient's family and explain to them they aren't going to accept patient, she agreed.
--- NOTE | 2019-01-26 09:00 | NUR ---
PT'S SON COMPLAINED PT IS DROWSY DUE TO WE GAVE PT PAIN MEDS. EXPLAINED TO PT'S SON WE GAVE PATIENT PAIN MEDS BECAUSE PT COMPLAINED PAIN.
--- NOTE | 2019-01-26 09:45 | NUR ---
CONTRACTED [facility] AGAIN FOR A COPY OF AARON THOMPSON STATED SHE WILL SEND A COPY. WILL FOLLOW UP IN AN HOUR.
--- NOTE | 2019-01-26 09:58 | NUR ---
Vessel Master Note: I called and spoke with patient's son David Díaz to discuss patient's tentative discharge plan. I asked him if someone from [facility] had contacted him to let him know they are not accepting back upon discharge. He replied "no". I apologized on [facility]' behalf and explained to him I was told they will not accept patient upon discharge. He verbalized understanding. I informed him I was in process of finding a new sub-acute facility for placement and would provide him with an update. I provided him with my contact information. He thanked me for my assistance.
--- NOTE | 2019-01-26 10:17 | NUR ---
Gardening Supervisor Note: I faxed inquiry to the following subacute facilities: [facility] , they do not have any female beds available in their subacute facilities at this time. Per Celina from [facility] , they do not have a contract with [facility]. [facility] , they do not have any female beds available in their subacute facilities at this time nor have a contract with [facility]. Pending response from [facility] Pending response from [facility] Pending response from [facility]
--- NOTE | 2019-01-26 10:28 | NUR ---
RECEIVED A FAX COPY OF POLST FROM [facility] [employer], PLACED IN THE CHART.
--- NOTE | 2019-01-26 10:40 | NUR ---
Switchman Note: Kodi Zazueta from [facility] / , she will come evaluate patient today.
--- NOTE | 2019-01-26 10:48 | NUR ---
System Validation Engineer Note: [facility]'t have any female beds available at this time. Pending response from [facility] .
--- NOTE | 2019-01-26 11:29 | NUR ---
pt had small amount of bm, cleaned pt, turned and repositioned pt with charge nurse. pt tolerated well.
--- NOTE | 2019-01-26 12:04 | NUR ---
Intervention Manager Note: Per Jonas from [facility] , their subacute unit is full, no beds available at this time. Per Mary Jane from [facility] , she is going to contact [facility] and inquire if patient has Medi-Kishan coverage and also obtain insurance eligibility benefits. Mary Jane stated her field placement director is reviewing inquiry.
--- NOTE | 2019-01-26 13:30 | NUR ---
LATE ENTRY. CALLED EPI RAMIREZ [place] [facility] ASKING [place] FOR THIS PATIENT. [facility].
--- NOTE | 2019-01-26 13:34 | NUR ---
Lifeguard Note: I faxed inquiry to [facility] ([facility]reg[facility]) (located in [place]). Per Luis Carlos from [facility] , they are able to accommodate patient with trach and vents at their facility. I received a call from Luis Armando from [facility], he stated they are reviewing inquiry and requested [facility]'s family preservation caseworkerwatershed manager information. I provided him with family preservation caseworker Ana from [facility]'s contact information .
--- NOTE | 2019-01-26 13:45 | NUR ---
PT ASLEEP AT THIS TIME, NOT IN ANY DISTRESS. WILL CONTINUE TO MONITOR.
--- NOTE | 2019-01-26 14:37 | NUR ---
Per Remi from [facility] , patient has been clinically accepted, their only concern is face sheet does not indicate patient has Medi-Kishan coverage. I told Remi I was going to contact [facility] and inquire about Medi-Kishan status. I called and spoke with Lakeisha from business office at [facility] . She stated their staff offered to assist patient�s son Davdi Díaz with Medi-Kishan application, however, he declined to apply. I called and spoke with patient's son David Díaz and explained to him some facilities I have contacted have asked whether patient has applied for Medi-Kishan. I also told him I was informed by [facility] he declined to assist patient with Medi-Kishan application. I told him Medi-Kishan covers subacute facility placement, therefore, Medi-Kishan coverage is needed. He stated no one explained this to him and he is willing to cooperate with Medi-Kishan application. Per Director manoj Nicole to refer patient to [employer] for Medi-Kishan application. I referred patient to [employer] credit and collections representative from [employer] ext [phone].
--- NOTE | 2019-01-26 15:26 | NUR ---
PT ASLEEP AT THIS TIME. NO DISTRESS NOTED. WILL CONTINUE TO MONITOR.
--- NOTE | 2019-01-26 16:24 | NUR ---
01/26/19 RD FOLLOW UP COMPLETED PLEASE REFER TO NUTRITION ASSESSMENT UNDER CARE ACTIVITY FOR ESTIMATED NUTRITIONAL NEEDS. 1. RECOMMEND PUREE CARDIAC DIET 2. RESUME TUBE FEEDING IF PO INTAKE OF PUREE DIET IS UNDER 50% 3. RD TO FOLLOW-UP 2-3 DAYS, HIGH RISK MAGNO LERMA, RD
--- NOTE | 2019-01-26 16:37 | NUR ---
Per Isis from [facility] , they do not have any beds available in their subacute unit at this time.
[2019-01-26] MEDS: NACL 0.9% 1,000 ML IV SCH (16:46)
--- NOTE | 2019-01-26 17:23 | NUR ---
VENT CHECK COMPLETED. PT NOT IN ANY DISTRESS AT THIS TIME. TRACH REMAINS SECURE WITH A PATENT AIRWAY. VENT ALARMS REMAIN ON AND FUNCTIONING.
--- NOTE | 2019-01-26 17:46 | NUR ---
PT RESTING IN BED, NO S/S OF RESPIRATORY DISTRESS NOTED.
[2019-01-26] MEDS ORDERED: ALBUMIN HUMAN 25% 100 ML IV SCH (18:00)
--- NOTE | 2019-01-26 19:30 | NUR ---
RECEIVED BEDSIDE REPORT FROM MORNING SHIFT NURSE. PT IS AAOX4, MOUTH WORDS, ABLE TO MAKE NEEDS KNOWN. AFEBRILE, DENIES PAIN. SINUS RHYTHM ON MONITOR, S1 S2 HEARD. TRACH TO VENT W/ SETTINGS: AC 12, VT 500, FIO2 30%, PEEP 5. LUNG SOUNDS CLEAR BILATERALLY, DIMINISHED LOWER LOBES. G TUBE IN PLACE, NO RESIDUALS, RECEIVING TF JEVITY 1.2 AT 60ML/HR, WATER FLUSH 30 ML Q8H. ABDOMEN SOFT, ROUND, NONTENDER W/ ACTIVE BOWEL SOUNDS. PERIPHERAL IV G20 TO LEFT FOREARM AND G18 TO RIGHT HANDS ASYMPTOMATIC, PATENT AND INTACT, INFUSING IVF NS AT 10ML/HR TKO. TRUONG CATH IN PLACE DRAINING CLEAR YELLOW URINE TO GRAVITY. SKIN INTACT, DRY AND WARM TO TOUCH. 2+ PITTING EDEMA ON BILATERAL LEGS AND FEET. HOB ELEVATED 30 DEGREES, BED IN LOWEST POSITION LOCKED AND CALL LIGHT WITHIN REACH. NO ACUTE DISTRESS NOTED. WILL CONTINUE TO MONITOR.
[2019-01-26] MEDS: ATORVASTATIN 20 MG TAB PO SCH (20:51)
--- NOTE | 2019-01-26 20:54 | NUR ---
PHONE CALL TO DR SHAH; PT ON HEPARIN SUBQ Q12HRS, PTT 44.3; DR SHAH SAID OK TO GIVE HEPARIN.LAILA THRASHER AWARE
--- NOTE | 2019-01-26 21:00 | NUR ---
MEDICATIONS ADMINISTERED ORDERED. PT TOLERATED WELL.
[2019-01-27] VITALS (13 sets, daily range): BP systolic 98–138; BP diastolic 52–90
--- NOTE | 2019-01-27 00:35 | NUR ---
PT HAD A LARGE AMOUNT OF BROWN LIQUID BOWEL MOVEMENT. CLEANED AND REPOSITIONED FOR COMFORT. VAP ORAL CARE GIVEN.
--- NOTE | 2019-01-27 01:55 | NUR ---
PT HAD ANOTHER LARGE BROWN LIQUID BOWEL MOVEMENT. BED BATH GIVEN. LINENS CHANGED. REPOSITIONED AND OFF LOAD PRESSURE AREAS. PT TOLERATED WELL.
--- NOTE | 2019-01-27 04:00 | NUR ---
NO CHANGE IN CONDITION AT THIS TIME. VSS. AFEBRILE. DENIES PAIN. VAP ORAL CARE GIVEN AND REPOSITIONED FOR COMFORT.
[2019-01-27] MEDS: METOCLOPRAMIDE 10 MG/10 ML SYRP UDC PO SCH ×2 (05:12→12:55)
[2019-01-27] MEDS: FUROSEMIDE 40 MG/4 ML VIAL IVP SCH ×2 (05:13→11:07)
[2019-01-27] MEDS: PIPER/TAZO 3.375GM/D5W PREMIX 50 ML IV SCH ×4 (05:13→23:47)
[2019-01-27] MEDS: LANSOPRAZOLE 30 MG CAPDR GT SCH (05:31)
[2019-01-27 06:08] LABS: BASOPHILS % (AUTO) 0.7 % (0.0-2.0); EOSINOPHILS # (AUTO) 0.7 K/uL (0-0.4); EOSINOPHILS % (AUTO) 11.3 % (0.0-4.0); HEMATOCRIT 28.4 % (36-48); LYMPHOCYTES # (AUTO) 0.7 K/uL (2.5-16.5); LYMPHOCYTES % (AUTO) 11.8 % (20.5-51.1); MEAN CORPUSCULAR HEMOGLOBIN 26 pg (27-31); MEAN CORPUSCULAR HGB CONC 32 g/dL (33-37); MEAN CORPUSCULAR VOLUME 80.4 fL (80-94); MONOCYTES # (AUTO) 0.7 K/uL (0.8-1.0); MONOCYTES % (AUTO) 11.6 % (1.7-9.3); NEUTROPHILS # (AUTO) 3.7 K/uL (1.8-7.7); NEUTROPHILS % (AUTO) 64.6 % (42.2-75.2); PLATELET COUNT (AUTO) 235 K/uL (140-450); RED BLOOD CELL COUNT(AUTO) 3.53 MIL/uL (4.20-5.40); WHITE BLOOD COUNT (AUTO) 5.7 K/uL (4.8-10.8)
--- NOTE | 2019-01-27 06:20 | NUR ---
DR. GATICA IN TO SEE PT. UPDATES GIVEN ON PT'S CONDITION. WILL FOLLOW UP ON ORDERS.
[2019-01-27 06:44] LABS: ANION GAP 11.2 (8-16); CARBON DIOXIDE 29.8 mmol/L (21-32); CHLORIDE 107 mmol/L (98-107); CREATININE 0.9 mg/dL (0.6-1.3); GLUCOSE 116 mg/dL (74-106); SODIUM SERUM 145 mmol/L (136-145); UREA NITROGEN, BLOOD 20 mg/dL (7-18)
[2019-01-27 06:50] LABS: PHOSPHORUS 3.7 mg/dL (2.5-4.9)
[2019-01-27] MEDS: ALBUTEROL SULFATE/IPRATROPIU 3 ML SOL IH SCH ×3 (06:56→19:05)
--- NOTE | 2019-01-27 06:56 | NUR ---
RECEIVED PT ON CARESCAPE ON DOCUMENTED SETTINGS, ALARMS ARE 0N AND AUDIBLE, PT IN HF ASLEEP PTS TRACH PORTEX 8 IS SECURE DIMINISHED HHN GVIEN I\L WITH 3 MG DUONEB, BMV HOB VENT PLUGGED INTO RED OUTLET
--- NOTE | 2019-01-27 07:28 | NUR ---
REPORT GIVEN TO MORNING SHIFT RN FOR CONTINUITY OF CARE. PT IS IN STABLE CONDITION.
--- NOTE | 2019-01-27 08:00 | NUR ---
PATIENT AWAKE, ALERT, ORIENTED TO PERSON, PLACE, TIME, SITUATION, HEADO F BED UP 30 DEGREES, WITH TRACHEOSTOMY TO VENTILATOR AC12 FIO2 30%, PEEP 5 SO2 99%, SINUS RHYTHM ON MONITOR 88BPM, WITH GTUBE TO JEVITY FEEDING 60 ML/HR. NO RESIDUALS, WITH TRUONG CATHETER, YELLOW URINE NOTED IN THE UROBAG, WITH PERIPHERAL LINES GAUGE 22 AT LEFT ARM, GAUGE 18 AT RIGHT HAND-BOTH SITES ASYMPTOMATIC, NO IV DRIPS, SKIN INTACT, CALL [place] WITHIN REACH
[2019-01-27] MEDS: ASPIRIN 81 MG TAB.CHEW PO SCH (08:05)
[2019-01-27] MEDS: POTASSIUM CHLORIDE 8 MEQ TABER PO SCH (08:06)
[2019-01-27] MEDS: LACTOBACILLUS RHAMNOSUS GG 1 EACH CAP PO SCH (08:06)
[2019-01-27] MEDS: LISINOPRIL 5 MG TAB PO SCH (08:06)
[2019-01-27] MEDS: METOPROLOL 25 MG TAB PO SCH ×2 (08:07→21:00)
[2019-01-27] MEDS: SPIRONOLACTONE 25 MG TAB PO SCH (08:07)
[2019-01-27] MEDS: LACTULOSE 20 GM/30 ML UDC PO SCH (08:08)
[2019-01-27] MEDS: ACETAMINOPHEN 325 MG TAB PO PRN (08:08)
[2019-01-27] MEDS: levETIRAcetam 100 MG/ML ORASYR GT SCH ×2 (08:08→21:05)
[2019-01-27] MEDS: acetaZOLAMIDE 250 MG TAB GT SCH ×2 (08:11→21:01)
[2019-01-27] MEDS ORDERED: POTASSIUM CHLORIDE 40 MEQ, LIDOCAINE MPF 1% - 5 mL VIAL 25 MG in NACL 0.9% 250 ML IV SCH (08:30)
--- NOTE | 2019-01-27 09:30 | NUR ---
PATIENT'S SON CORKY AT BEDSIDE. SON VERBALIZED HE DOES NOT WANT HER MOM "KNOCKED OUT" ON SEDATIONS
--- NOTE | 2019-01-27 10:40 | NUR ---
DR. HOUSTON AT BEDSIDE. PHYSICIAN INFORMED OF THE TOTAL POTASSIUM CORRECTION 40 IV, 56 VIA GTUBE
[2019-01-27] MEDS ORDERED: POTASSIUM CHLORIDE 20% 40 MEQ/15 ML UDC GT SCH ×2 (11:00→13:15)
--- NOTE | 2019-01-27 11:00 | NUR ---
PERINEAL ANAL, CATHETER CARE RENDERED AFTER PATIENT HAD BM SOFT YELLOW IN LARGE AMOUNT. PATIENT TOLERATED THE PROCEDURE
--- NOTE | 2019-01-27 11:37 | NUR ---
PERINEAL ANAL, CATHETER CARE RENDERED AGAIN AFTER PATIENT HAD BM SOFT YELLOW IN LARGE AMOUNT. PATIENT TOLERATED THE PROCEDURE
[2019-01-27] MEDS ORDERED: LORazepam 0.5 MG TAB GT PRN (12:40)
--- NOTE | 2019-01-27 12:45 | NUR ---
PATIENT COMPLAINED SHE IS HAVING "ANXIETY AND HAVING DIFFICULTY BREATHING". PATIENT SO2 98% BEFORE AND AFTER TRACHEAL SUCTIONING. MINIMAL SECRETIONS WHITE COLORED NOTED. INFORMED DR. GATICA AND INFORMED HER THAT PATIENT'S SON DOES NOT WANT HIS MOM "KNOCKED OUT". PHYSICIAN CHANGED IV ATIVAN TO TABLET. WILL GIVE AND CONTINUE TO MONITOR
--- NOTE | 2019-01-27 14:00 | NUR ---
SPEECH THERAPIST AT BEDSIDE AND RECOMMENDED NECTAR THICK LIQUIDS, SPEAKING VALVE TRIAL. PATIENT ABLE TO TOLERATE TRACHEOSTOMY CUFF DEFLATED.
--- NOTE | 2019-01-27 14:51 | NUR ---
* ST NOTE * Pt seen at bedside. Pt alert, cooperative and engaged throughout session, reporting no c/o pain at this time. Nsg and pt reporting observing NO PMV trials being completed since initial swallow eval on 01/25, despite recommendations made by both MD & BANK NOTE DESIGNER. Clinician thus deflating pt's trach cuff at this time to assess tolerance, w/pt initially coughing upon deflation of trach cuff, but later demonstrating adequate tolerance of trach cuff deflation, maintaining 02 saturation & HR WFL at this time. Pt thus tolerating 4/4 alternating PO trials of puree apple sauce as well as 7/7 alternating PO trials of nectar-thickened apple juice, all 3-5 CCs at a time via a spoon w/o s/s of aspiration or choking. Pt presenting with delayed residual coughing after conclusion of therapeutic feeding trials. Pt requesting water but education completed re: pt having to demonstrate tolerating NTL first for at least 7 consecutive days w/o s/s of aspiration or choking prior to beginning therapeutic feeding trials of thin liquids, w/pt verbalizing understanding and agreement. Pt and caregivers/nsg education completed re: aspiration precautions and safe swallow compensatory strategies pt and caregivers/family/nsg could utilize to aid pt w/swallow function, w/pt and caregivers/nsg verbalizing understanding and agreement as well. It is thus recommended pt's PO diet consistency be modified to puree textures w/nectar-thickened liquids for all meals at this time, w/trach cuff deflated at all times prior to & during PO intake, as well as w/strict aspiration precautions in place during pt's PO intake at all times. Pt and caregivers/nsg education completed re: results of skilled BANK NOTE DESIGNER tx, benefits of receiving continued skilled BANK NOTE DESIGNER services, significance of RT completing PMV trials DAILY, benefits of abiding by aspiration precautions and recommended PO diet consistency, and prognsosis for improvement, w/pt and caregivers/nsg agreeable. Pt requesting for trach cuff to remain deflated at this time. Pt and caregivers/nsg education completed re: benefits of leaving trach cuff deflated to aid pt w/increasing tolerance of trach cuff deflation and to prepare pt for PMV trials, but also risks of leaving trach cuff deflated, sirisha when pt drowsy or asleep. Clinician informing nsg that clinician left pt's trach cuff deflated at this time w/pt aware, and to please re-inflate trach cuff if pt falls asleep, w/pt and caregivers/nsg verbalizing understanding and agreement. Recommend: - RESPIRATORY THERAPY: PLEASE COMPLETE TRACH CUFF DEFLATION & PASSY LISA SPEAKING & EATING VALVE (PMV) TRIALS DAILY TO BUILD PT'S TOLERANCE OF PMV AND INCREASE PT'S READINESS FOR SAFER PO INTAKE - D/C NPO - BEGIN PO DIET CONSISTENCY OF PUREE TEXTURES W/NECTAR-THICKENED LIQUIDS FOR ALL MEALS W/TRACH CUFF DEFLATED AT ALL TIMES DURING PO INTAKE - RT/NSG: ASSURE TRACH CUFF IS DEFLATED PRIOR TO PT'S PO INTAKE, THEN PLEASE RE-INFLATE TRACH CUFF IF PT FALLS ASLEEP - RT/NSG: SUCTION PT TID AFTER MEALS AND PRN AFTER PO INTAKE - Once pt can safely tolerate PMV in place while maintaining HR & O2 SAT WFL for ~1 hour, PLEASE DEFLATE CUFF & PLACE PMV ON DURING PT'S PO INTAKE WELL - PO MEDICATION ADMINISTRATION CRUSHED IN PUREE TEXTURES OR NECTAR-THICKENED LIQUIDS - MAINTAIN STRICT ASPIRATION PRECAUTIONS DURING PT'S PO INTAKE 2/2 to trach/vent dependent - Pt requires total assistance w/feeding - Feeder to SIT PT UP AT 80-90 DEGREE ANGLE DURING PO INTAKE; FEED PT SLOWLY; ALTERNATE BTWN SOLIDS & LIQUIDS; AND UTILIZE SMALL BITES/SIPS ST to ff 2x/week for 1 week to further observe PMV tolerance, address swallow function, and to assess least restrictive PO diet consistency. NOMS Level 3 Time In/Out 13:45 - 14:30
--- NOTE | 2019-01-27 15:00 | NUR ---
INFORMED DR. GATICA THAT SPEECH THERAPIST'S RECOMMENDATION IS IN THE PATIENT'S EMR AND TO ORDER IF SHE IS AGREEABLE TO IT. INFORMED PHYSICIAN THAT PATIENT'S PERIRECTAL AREA STARTING TO BE RED DUE TO FREQUENT BM PATIENT IS ON LACTULOSE BID. PER PHYSICAIN SHE WILL PUT ORDER FOR ZGARD CREAM
--- NOTE | 2019-01-27 15:05 | NUR ---
PATIENT VERBALIZED OF GENERALIZED BODY PAIN SHE SCORED 5 OUT OF 10 AND ASKED FOR PAIN MEDICATION. WILL GIVE PRN NORCO ORDERED
[2019-01-27] MEDS: HYDROcodone/APAP 5/325 MG 1 TAB TAB PO PRN ×2 (15:28→23:48)
--- NOTE | 2019-01-27 15:55 | NUR ---
DEFLATED CUFF PLACED PMV PT REFUSES REINFLATED CUFF
[2019-01-27] MEDS ORDERED: Z-GUARD PASTE TP PRN (17:25)
[2019-01-27] MEDS: POTASSIUM CHLORIDE 20% 40 MEQ/15 ML UDC GT SCH (17:29)
[2019-01-27] MEDS: FUROSEMIDE 20 MG/2 ML VIAL IVP SCH ×2 (17:29→23:47)
--- NOTE | 2019-01-27 19:32 | NUR ---
BSSR RECEIVED FROM PRICE CUNHA. PT AAOX4, TRACH TO VENT, NO S/S OF ANY ACUTE DISTRESS, GT INTACT AND FEEDING RUNNING AT THE GOAL RATE AND TOLERATING WELL. EDEMA TO ALL EXTREMITIES, DENIES PAIN. TRUONG CATHETER INTACT AND DRAINING YELLOW CLEAR URINE. IV SITES ARE INTACT AND PATENT, WILL CONTINUE TO MONITOR CLOSELY.
[2019-01-27] MEDS: LACTULOSE 20 GM/30 ML UDC GT SCH (21:00)
[2019-01-27] MEDS: ATORVASTATIN 20 MG TAB PO SCH (21:05)
[2019-01-27] MEDS: Z-GUARD PASTE TP SCH (23:49)
[2019-01-28] VITALS (8 sets, daily range): BP systolic 90–115; BP diastolic 45–62
--- NOTE | 2019-01-28 00:15 | NUR ---
VSS, PT ASLEEP, NO S/S OF ANY DISTRESS. WILL CONTINUE TO MONITOR CLOSELY.
--- NOTE | 2019-01-28 03:18 | NUR ---
VSS, PT ASLEEP, NO S/S OF ANY DISTRESS. WILL CONTINUE TO MONITOR CLOSELY.
[2019-01-28] MEDS: FUROSEMIDE 20 MG/2 ML VIAL IVP SCH ×3 (05:42→17:30)
[2019-01-28] MEDS: LANSOPRAZOLE 30 MG CAPDR GT SCH (05:42)
[2019-01-28] MEDS: PIPER/TAZO 3.375GM/D5W PREMIX 50 ML IV SCH ×3 (05:42→17:30)
[2019-01-28] MEDS: ALBUTEROL SULFATE/IPRATROPIU 3 ML SOL IH SCH ×3 (06:06→19:18)
--- NOTE | 2019-01-28 06:06 | NUR ---
rec'd pt on carescape vent settings ac prvc rr 12 vt 500 peep 5 fio2 30 i-time 0.80 alarms on and audible and vent is plugged into red outlet and ambu bag is at side of vent, no hhn given pt sleeping with no signs of distress noted at this time, b\s are clear and sxdn pt small amt of clear secretions, pt is trach with portex 8 and skin integrity is intact
[2019-01-28 06:28] LABS: HEMATOCRIT 28.7 % (36-48); HEMOGLOBIN 9.1 g/dL (12.0-16.0); MEAN CORPUSCULAR HEMOGLOBIN 26 pg (27-31); MEAN CORPUSCULAR HGB CONC 32 g/dL (33-37); MEAN CORPUSCULAR VOLUME 80.8 fL (80-94); PLATELET COUNT (AUTO) 243 K/uL (140-450); RED BLOOD CELL COUNT(AUTO) 3.56 MIL/uL (4.20-5.40); RED CELL DISTRIBUTION WIDTH 18.8 % (11.6-13.7); WHITE BLOOD COUNT (AUTO) 5.7 K/uL (4.8-10.8)
[2019-01-28 07:10] LABS: ANION GAP 12.7 (8-16); CARBON DIOXIDE 28.1 mmol/L (21-32); CHLORIDE 111 mmol/L (98-107); CREATININE 0.9 mg/dL (0.6-1.3); GLUCOSE 100 mg/dL (74-106); POTASSIUM 3.8 mmol/L (3.5-5.1); SODIUM SERUM 148 mmol/L (136-145); UREA NITROGEN, BLOOD 20 mg/dL (7-18)
--- NOTE | 2019-01-28 07:15 | NUR ---
RECEIVED BEDSIDE REPORT FROM VOCATIONAL PLACEMENT SPECIALIST RN, DOLORES, FOR CONTINUITY OF CARE. PATIENT IS AAOX4, ABLE TO MAKE NEEDS KNOWN AND FOLLOWS COMMANDS. PATIENT SKIN IS INTACT, PERIPHERAL IV SITE TO R. HAND, 18 GAUGE. PATIENT IS TRACH TO VENT, SETTING ARE AC 12, TV 500, FIO2 30%, PEEP OF 5. PATIENT IS SR ON MONITOR, DENIES ANY PAIN. SHE HAS TRUONG CATHETER IN PLACE TO CLEAR YELLOW URINE. SAFETY PRECAUTIONS AND ALARMS ASSESSED AND ENFORCED. NO SIGNS OF DISTRESS NOTED AT THIS TIME. WILL CONTINUE TO MONITOR
--- NOTE | 2019-01-28 07:27 | NUR ---
BSSR GIVEN TO ANH TRIPLETT VSS. GCS OF 15.
[2019-01-28 07:35] LABS: PHOSPHORUS 3.5 mg/dL (2.5-4.9)
[2019-01-28 08:02] LABS: BASOPHILS % (MANUAL) 0 % (0-2); EOSINOPHILS % (MANUAL) 23 % (0-4); LYMPHOCYTES % (MANUAL) 12 % (20-46); MONOCYTES % (MANUAL) 7 % (5-12)
--- NOTE | 2019-01-28 09:09 | NUR ---
01/28/19 RD FOLLOW UP COMPLETED PLEASE REFER TO NUTRITION PROGRESS NOTE UNDER CARE ACTIVITY FOR ESTIMATED NUTRITION NEEDS. RD RECOMMENDATIONS: 1. RECOMMEND CONTINUING CARDIAC PUREE DIET TOLERATED. 2. RD TO FOLLOW-UP 3-5 DAYS, MODERATE RISK PASCUAL STOCKTON MS, RDN
[2019-01-28] MEDS: acetaZOLAMIDE 250 MG TAB GT SCH ×2 (09:11→22:19)
[2019-01-28] MEDS: levETIRAcetam 100 MG/ML ORASYR GT SCH ×2 (09:11→22:17)
[2019-01-28] MEDS: LACTOBACILLUS RHAMNOSUS GG 1 EACH CAP PO SCH (09:11)
[2019-01-28] MEDS: ASPIRIN 81 MG TAB.CHEW PO SCH (09:11)
[2019-01-28] MEDS: LISINOPRIL 5 MG TAB PO SCH (09:12)
[2019-01-28] MEDS: METOPROLOL 25 MG TAB PO SCH ×3 (09:12→22:18)
[2019-01-28] MEDS: SPIRONOLACTONE 25 MG TAB PO SCH (09:13)
[2019-01-28] MEDS: POTASSIUM CHLORIDE 20% 40 MEQ/15 ML UDC GT SCH ×3 (09:16→17:30)
--- NOTE | 2019-01-28 10:00 | NUR ---
TRANSFERRED PATIENT TO [facility], ACCOMPANIED BY SON, CORKY AND TWO RTS, ELADIO AND STEVE. PATIENT WAS HOOKED UP TO TRANSPORT MONITOR, NO SIGNS OF DISTRESS NOTED DURING TRANSPORT. ENDORSED CONTINUITY OF CARE TO [facility] RN, LATHA. ASSISTED WITH TRANSFER TO [facility] BED, PATIENT TOLERATED WELL.
--- NOTE | 2019-01-28 10:17 | NUR ---
PT MOVED TO ROOM 123B PLACED BACK ON VENT SAME SETTINGS SNX PT MODERATE AMT OF SECRETIONS, SON AT BEDSIDE WANTED PASSEY LISA VALUE IN PLACE DEFLATED CUFF PT HAD PMV IN PLACE FOR 3 MINUTES AND COULD NOT BREATH PMV WAS REMOVED AND CUFF INFLATED PT NOW DOING GOOD
--- NOTE | 2019-01-28 10:18 | NUR ---
PATIENT TRANSFERRED TO [facility] BED SAFELY. NO DISTRESS NOTED. VENT PLACED BACK ON. RESPIRATIONS EVEN, UNLABORED, ON ROOM AIR. HAS GENERALIZED NON-PITTING EDEMA NOTED. DENIES ANY PAIN AT THIS TIME. AAOX4, CALM, COOPERATIVE, SKIN COLOR APPROPRIATE TO ETHNICITY, WARM TO TOUCH. HAS SACRAL REDNESS NOTED, OTHERWISE, SKIN INTACT. REVIEWED PLAN OF CARE WITH PATIENT/SON AT BEDSIDE. SAFETY MEASURES IN PLACE, CALL LIGHT WITHIN REACH. WILL CONTINUE TO MONITOR.
--- NOTE | 2019-01-28 12:17 | NUR ---
PT'S TRACH CUFF DEFLATED FOR PT TO EAT SON AT BEDSIDE RN LATHA NOTIFIED OF CUFF DEFLATION
[2019-01-28] MEDS: Z-GUARD PASTE TP SCH (12:39)
--- NOTE | 2019-01-28 12:40 | NUR ---
PATIENT SITTING IN BED, RT CALLED TO DEFLATE TRACH CUFF SO PATIENT CAN EAT. SCHEDULED MEDICATIONS DUE GIVEN. SON AT BEDSIDE FEEDING PATIENT. WILL CONTINUE TO MONITOR.
--- NOTE | 2019-01-28 15:36 | NUR ---
PATIENT SITTING IN BED, NO DISTRESS NOTED. DENIES ANY PAIN. CONDITION UNCHANGED. WILL CONTINUE TO MONITOR.
--- NOTE | 2019-01-28 17:37 | NUR ---
PATIENT LYING DOWN IN BED COMFORTABLY. VENT SETTINGS UNCHANGED. NO DISTRESS NOTED. SCHEDULED MEDICATIONS DUE GIVEN. LASIX WITHHELD AT THIS TIME DUE TO DECREASED BP AND MAP. WILL CONTINUE TO MONITOR.
--- NOTE | 2019-01-28 18:23 | NUR ---
PATIENT FEELING NAUSEATED AFTER DINNER GIVEN. ZOFRAN GIVEN. WILL CONTINUE TO MONITOR.
--- NOTE | 2019-01-28 19:27 | NUR ---
GAVE REPORT TO POWERED BRIDGE SPECIALIST NURSE FOR CONTINUITY OF CARE. PATIENT IN STABLE CONDITION
--- NOTE | 2019-01-28 19:27 | NUR ---
Received pt stable on vent support at documented settings, suctioned small amounts of thick white secretions, hhn tx given, tolerated well, no resp distress or SOB noted at this time, Portex 8 trach secured/patent/midline, alarms set and audible, vent plugged into red outlet, ambu bag at bedside, cont pulse ox on, will cont to monitor.
--- NOTE | 2019-01-28 19:30 | NUR ---
RECEIVED PT FROM LATHA THRASHER PT HOB 30 DEGREE TRACHTO VENT DEPENDENT TV 500 FIO2 30% RR 12 PEEP 5 NOT SOB NOTED, PT IS AAOX4 MOTH WORDS ON TELMETRYSR, FOLE CATH DRAINING WELL YELLOW URINE, HL PATENT ON BOTH ARMS, REPOSITIONED INITIAL ASSESSMENT DONE
--- NOTE | 2019-01-28 21:00 | NUR ---
PT SUCTIONED NECESSARY NOT DISTRESS NOTED MEDIC TAKEN ORDER ON TELE SR
[2019-01-28] MEDS: LACTULOSE 20 GM/30 ML UDC GT SCH (22:16)
[2019-01-28] MEDS: ATORVASTATIN 20 MG TAB PO SCH (22:17)
[2019-01-29] VITALS (7 sets, daily range): BP systolic 90–105; BP diastolic 28–59
--- NOTE | 2019-01-29 | NUR ---
HOB 30 DEGREE ORAL CARE GIVEN WITH VAP KIT NOT DISTRESSS ON TELMETRY SR
[2019-01-29] MEDS: FUROSEMIDE 20 MG/2 ML VIAL IVP SCH ×4 (00:31→20:18)
[2019-01-29] MEDS: PIPER/TAZO 3.375GM/D5W PREMIX 50 ML IV SCH ×4 (00:32→23:30)
[2019-01-29] MEDS: Z-GUARD PASTE TP SCH ×2 (01:15→13:02)
--- NOTE | 2019-01-29 03:00 | NUR ---
PT HAS BEEN REPOSITIONED Q2H, AND SUKCTIONED NECESSARY TOLERATED WELL PO ORDER ON TELEMETRY SR, TRACH TO VENT REMAIN SAME SETTING
--- NOTE | 2019-01-29 05:00 | NUR ---
SPONGE BATH GIVEN LINEN CHANGED TRACH TO POLY REMAINSAME SETTING NOT SOB NOTED SUCTIONED NECESSARY TRUONG CATH DRAINING WELL YELLOW URINE
[2019-01-29] MEDS: LANSOPRAZOLE 30 MG CAPDR GT SCH (06:00)
[2019-01-29 06:33] LABS: ANION GAP 12.2 (8-16); CARBON DIOXIDE 27.4 mmol/L (21-32); CHLORIDE 106 mmol/L (98-107); CREATININE 1.1 mg/dL (0.6-1.3); GLUCOSE 91 mg/dL (74-106); MAGNESIUM 2.1 mg/dL (1.8-2.4); PHOSPHORUS 3.8 mg/dL (2.5-4.9); POTASSIUM 3.6 mmol/L (3.5-5.1); SODIUM SERUM 142 mmol/L (136-145); UREA NITROGEN, BLOOD 20 mg/dL (7-18)
[2019-01-29 06:40] LABS: BASOPHILS # (AUTO) 0.1 K/uL (0.00-0.22); BASOPHILS % (AUTO) 1.7 % (0.0-2.0); EOSINOPHILS # (AUTO) 0.7 K/uL (0-0.4); EOSINOPHILS % (AUTO) 12.3 % (0.0-4.0); HEMATOCRIT 28.7 % (36-48); HEMOGLOBIN 9.1 g/dL (12.0-16.0); LYMPHOCYTES # (AUTO) 1.2 K/uL (2.5-16.5); LYMPHOCYTES % (AUTO) 20.4 % (20.5-51.1); MEAN CORPUSCULAR HEMOGLOBIN 25 pg (27-31); MEAN CORPUSCULAR HGB CONC 32 g/dL (33-37); MEAN CORPUSCULAR VOLUME 79.9 fL (80-94); MONOCYTES # (AUTO) 0.7 K/uL (0.8-1.0); MONOCYTES % (AUTO) 11.5 % (1.7-9.3); NEUTROPHILS # (AUTO) 3.3 K/uL (1.8-7.7); NEUTROPHILS % (AUTO) 54.1 % (42.2-75.2); PLATELET COUNT (AUTO) 239 K/uL (140-450); RED BLOOD CELL COUNT(AUTO) 3.59 MIL/uL (4.20-5.40); RED CELL DISTRIBUTION WIDTH 18.8 % (11.6-13.7); WHITE BLOOD COUNT (AUTO) 6.1 K/uL (4.8-10.8)
--- NOTE | 2019-01-29 06:42 | NUR ---
PT HOB 30 DEGREE TRACH TO POLY REMAIN SAME SETTING NOT SOB NOTED ON TELEMETRY SR PT WILL BE ENDORSED TO DAY SHIFT NURSE FOR CONTINUITY ;OF CARE
[2019-01-29] MEDS: ALBUTEROL SULFATE/IPRATROPIU 3 ML SOL IH SCH ×3 (06:55→19:33)
--- NOTE | 2019-01-29 06:55 | NUR ---
RECEIVED PT ON CARESCAPE ON DOCUMENTED SETTINGS, ALARMS ARE ON AND AUDIBLE, PTS TRACH PORTEX 8 IS SECURE, PT IN HF AWAKE PMV PLACED CUFF DEFLATED PT DOES NOT WANT PMV LEFT IN PLACE REMOVED CUFF REINFLATED BS RHONCI HHN GIVEN I\L WITH 3 MG DUONEB BMV HOB VENT PLUGGED INTO RED OUTLET CONT. POX IN PLACE
--- NOTE | 2019-01-29 07:05 | NUR ---
RECEIVED BEDSIDE REPORT FROM TRACK HOE OPERATOR NURSE. PATIENT IS AWAKE, ALERT AND ORIENTEDX4. NO SIGNS OF DISTRESS ON TRACH TO VENT, VENT SETTINGS FIO2 30 VT 500 RATE 12 PEEP 5. PATIENT IS BEDBOUND, FALL RISK PROTOCOL IN PLACE. TRUONG CATH IN PLACE. R HAND 18G INFUSING NS 5 TKO, L FA 22G SL. CLEAN, DRY AND INTACT. TELE MONITOR IN PLACE. PATIENT INCONTINENT. SKIN IS INTACT, REDNESS BUTTOCKS. FLUID REST 1.5L. BED IN LOW POSITION. CALL LIGHT WITHIN REACH, WILL CONTINUE TO MONITOR THE PATIENT
--- NOTE | 2019-01-29 08:11 | NUR ---
PT PLACED ON SIMV 12 VT500 PEEP 5 FIO2 30 PS 10 RETURNED TO A/C WITH SAME SETTINGS AT 1642
--- NOTE | 2019-01-29 09:00 | NUR ---
PATIENT BEING FED BY TOOL AND PRODUCTION PLANNER. WILL CONTINUE TO MONITOR THE PATIENT
[2019-01-29] MEDS: acetaZOLAMIDE 250 MG TAB GT SCH ×2 (10:55→20:17)
[2019-01-29] MEDS: POTASSIUM CHLORIDE 20% 40 MEQ/15 ML UDC GT SCH ×3 (10:55→20:17)
[2019-01-29] MEDS: levETIRAcetam 100 MG/ML ORASYR GT SCH ×2 (10:55→20:17)
[2019-01-29] MEDS: SPIRONOLACTONE 25 MG TAB PO SCH (10:55)
[2019-01-29] MEDS: LACTOBACILLUS RHAMNOSUS GG 1 EACH CAP PO SCH (10:56)
[2019-01-29] MEDS: LISINOPRIL 5 MG TAB PO SCH (10:56)
[2019-01-29] MEDS: METOPROLOL 25 MG TAB PO SCH ×2 (10:56→20:18)
[2019-01-29] MEDS: ASPIRIN 81 MG TAB.CHEW PO SCH (10:56)
--- NOTE | 2019-01-29 11:00 | NUR ---
CHECKED GTUBE PLACEMENT USING SWOOSH. NO RESIDUAL. CRUSHED AND ADMINISTERED MEDS. FLUSHED BEFORE AND AFTER. PATIENT TOLERATED WELL. HELD ALL B/P MEDS AT THIS TIME. SON AT BEDSIDE. WILL CONTINUE TO MONITOR THE PATIENT
--- NOTE | 2019-01-29 11:26 | NUR ---
Per Luis Carlos from [facility]), they are able to accept patient, however, need authorization from [employer], pillowcase cutter Jesusita made aware.
--- NOTE | 2019-01-29 11:32 | NUR ---
I CALLED EPI FROM [employer] AND INFORMED HER AT [facility], IN [place], WOULD ACCEPT THE PATIENT BU NEEDS AUTH FROM [employer] PHONE [employer], [phone]. SHE SAID THEY CANNOT AUTHORIZE THE FACILITY BECAUSE THEY ARE NOT MEDICARE CERTIFIED.
--- NOTE | 2019-01-29 11:40 | NUR ---
[facility] from [facility] [employer] ext [phone] via e-mail, he will not be in office today and will follow up with patient and/or patient's son David Díaz regarding [facility] application once he returns to office.
[2019-01-29] MEDS: MIDODRINE 5 MG TAB GT PRN ×2 (13:24→23:30)
--- NOTE | 2019-01-29 13:30 | NUR ---
TOLD DR MUELLER ABOUT LOW B/P SHE SAID IM OK TO GIVE MIDODRINE AND IF B/P INCREASES I CAN GIVE LASIX. ADMINISTERED ALL CHRIS MEDS. PATIENT TOLERATED WELL. WILL CONTINUE TO MONITOR THE PATIENT. SON AT BEDSIDE
--- NOTE | 2019-01-29 13:52 | NUR ---
EPI FROM [facility] CALLED. SHE SAID TO TRY [facility].
--- NOTE | 2019-01-29 14:09 | NUR ---
SPOKE WITH SON, CORKY, AT BEDSIDE IN THE MORNING AND THEN AGAIN IN THE AFTERNOON. I INFORMED HIM WE ARE STILL TRYING TO FIND A SUBACUTE FOR THE PATIENT. I ALSO SAID THAT FOR MEDICAL, IT WAS REFERRED TO DIANDRA FROM [facility]. I CALLED THE SON AND INFORMED HIM DIANDRA WILL NOT BE IN HOSPITAL TODAY.
--- NOTE | 2019-01-29 14:10 | NUR ---
Superintendent Container Terminal Note: I faxed inquiry to [facility], e-fax , phone number PRICE Prescotttrinh Joelkeanumicaela . [facility]: [facility], [facility], [facility], [facility], [facility], [facility], [facility], [facility], [facility], [facility], [facility], [facility], and [facility].
--- NOTE | 2019-01-29 14:19 | NUR ---
Brewmaster Note: Kodi Perez from [facility] , they do not have any beds available in their subacute unit at this time.
--- NOTE | 2019-01-29 14:46 | NUR ---
103/46 DR MUELLER IS AWARE. SHE SAID TO HOLD LASIX UNTIL B/P HIGHER.
--- NOTE | 2019-01-29 15:05 | NUR ---
E Merchant Note: Kodi Zazueta from [facility] , she will call me back today and let me know if they can accept patient or not.
--- NOTE | 2019-01-29 15:16 | NUR ---
Acid Strength Inspector Note: Per Marlene from [facility] , they cannot accept patient without Medi[employer]Kishan.
--- NOTE | 2019-01-29 15:51 | NUR ---
Department Assistant Note: Per Carlita from [facility] , they cannot accept patient for two reasons, one is lack of Medi[facility]Kishan coverage, second, information obtained from [facility] regarding patient and/or patient's family. I asked Carlita which kind of information was disclosed to their facility from [facility], she stated she didn't have details.
--- NOTE | 2019-01-29 16:30 | NUR ---
PATIENT IS SLEEPING. NO SIGNS OF DISTRESS. WILL CONTINUE TO MONITOR THE PATIENT.
[2019-01-29] MEDS ORDERED: MORPHINE SULFATE 2 MG/ML SYR IVP PRN (17:30)
--- NOTE | 2019-01-29 18:34 | NUR ---
ADMINISTERED [facility]OT[facility]. PATIENT TOLERATED WELL. SUCTIONED PATIENT. WILL CONTINUE TO MONITOR THE PATIENT
--- NOTE | 2019-01-29 19:05 | NUR ---
GAVE BEDSIDE REPORT TO WELDING LEAD BURNER NURSE. PATIENT ENDORSED IN STABLE CONDITION
--- NOTE | 2019-01-29 19:07 | NUR ---
RECEIVED PT ON BED, AAOX4, VERBALLY RESPONSIVE, ON TRACH TO VENT WITH FOLLOWING SETTING: FI02-30%, FLOW RATE-40, PEEP-5, TIDAL VOLUME-500, RATE-12, VITAL SIGNS TAKEN, BP ON THE LOW SIDE BUT STABLE, DENIES ANY PAIN, EDEMA NOTED TO BLE, IVF INFUSING WELL AT TKO RATE, G-TUBE IN PLACE, CLAMPED AT THIS TIME, TRUONG CATHETER TO GRAVITY WITH STRAW COLORED URINE, BEDBOUND WITH SAFETY PRECAUTION IN PLACE, WILL REPOSITION Q2H AND OFFLOAD PRESSURE AREAS, CALL LIGHT WITHIN REACH.
[2019-01-29 19:55] LABS: ALBUMIN 2.8 g/dL (3.4-5.0); BILIRUBIN,DIRECT 0.7 mg/dL (0.0-0.3)
[2019-01-29] MEDS: ATORVASTATIN 20 MG TAB PO SCH (20:18)
--- NOTE | 2019-01-29 20:20 | NUR ---
10ML G-TUBE RESIDUAL NOTED, DUE MEDS CRUSHED AND GIVEN THRU G-TUBE, TOLERATED WELL, SUCTION SECRETION PRN, ALL NEEDS ATTENDED. Addendum: 01/30/19 at 0443 by Amaury Brand RN LASIX HOLD PER DR FAJARDO DUE TO BP OF 98/53.
[2019-01-29] MEDS: ACETAMINOPHEN 325 MG TAB PO PRN (20:57)
[2019-01-29] MEDS ORDERED: PNEUMOCOCCAL VACCINE 23 MCG/0.5 ML VIAL IMVAC PRN (21:10)
--- NOTE | 2019-01-29 23:30 | NUR ---
PT SLEEPING, OPEN EYES TO TOUCH, VITAL SIGNS TAKEN, BP-93/55, DENIES PAIN, NO SOB NOTED, MIDODRINE GIVEN PRN FOR LOW BLOOD PRESSURE, ZOSYN IVPB ADMINISTERED, CONTINUE TO REPOSITIONED AND OFFLOAD PRESSURE AREAS, MONITORED CLOSELY.
[2019-01-30] VITALS: BP 93/55
[2019-01-30] MEDS: Z-GUARD PASTE TP SCH ×2 (00:59→13:06)
--- NOTE | 2019-01-30 03:50 | NUR ---
PT AWAKE, REQUESTING FOR COLD WATER, HOB ELEVATED AND ASPIRATION PRECAUTION, TOLERATED WELL, VITAL SIGNS TAKEN, BP-95/57, HOLD LASIX DUE TO DECREASE BP, CONTINUE TO REPOSITION Q2H AND OFFLOAD PRESSURE AREAS, MONITORED CLOSELY.
[2019-01-30 04:00] VITALS: BP 95/57
[2019-01-30] MEDS: FUROSEMIDE 20 MG/2 ML VIAL IVP SCH ×3 (04:31→21:00)
[2019-01-30] MEDS: PIPER/TAZO 3.375GM/D5W PREMIX 50 ML IV SCH ×4 (05:29→23:57)
--- NOTE | 2019-01-30 05:30 | NUR ---
AM LAB DRAWN, PT PROVIDED WITH A SMALL AMOUNT OF WATER WITH ASPIRATION PRECAUTION, TOLERATED WELL, ORAL CARE DONE WITH VAP KIT, SUCTION SECRETION AFTERWARDS, NO DISTRESS NOTED, MONITORED CLOSELY.
[2019-01-30] MEDS: LANSOPRAZOLE 30 MG CAPDR GT SCH (05:37)
[2019-01-30 06:32] LABS: BASOPHILS # (AUTO) 0.1 K/uL (0.00-0.22); BASOPHILS % (AUTO) 1.1 % (0.0-2.0); EOSINOPHILS # (AUTO) 0.6 K/uL (0-0.4); EOSINOPHILS % (AUTO) 10.1 % (0.0-4.0); HEMOGLOBIN 8.8 g/dL (12.0-16.0); LYMPHOCYTES # (AUTO) 0.9 K/uL (2.5-16.5); LYMPHOCYTES % (AUTO) 16.2 % (20.5-51.1); MEAN CORPUSCULAR HEMOGLOBIN 26 pg (27-31); MEAN CORPUSCULAR HGB CONC 32 g/dL (33-37); MEAN CORPUSCULAR VOLUME 81.5 fL (80-94); MONOCYTES # (AUTO) 0.7 K/uL (0.8-1.0); MONOCYTES % (AUTO) 11.9 % (1.7-9.3); NEUTROPHILS # (AUTO) 3.5 K/uL (1.8-7.7); NEUTROPHILS % (AUTO) 60.7 % (42.2-75.2); PLATELET COUNT (AUTO) 233 K/uL (140-450); RED BLOOD CELL COUNT(AUTO) 3.43 MIL/uL (4.20-5.40); WHITE BLOOD COUNT (AUTO) 5.8 K/uL (4.8-10.8)
[2019-01-30 06:53] LABS: ANION GAP 13.3 (8-16); CARBON DIOXIDE 26.7 mmol/L (21-32); CHLORIDE 107 mmol/L (98-107); CREATININE 1.5 mg/dL (0.6-1.3); GLUCOSE 98 mg/dL (74-106); SODIUM SERUM 143 mmol/L (136-145); UREA NITROGEN, BLOOD 21 mg/dL (7-18)
[2019-01-30] MEDS: ALBUTEROL SULFATE/IPRATROPIU 3 ML SOL IH SCH ×3 (06:57→19:40)
--- NOTE | 2019-01-30 06:57 | NUR ---
REC'D PT ON CARESCAPE VENT SETTINGS AC 12 VT 500 PEEP 5 [id number]% ALARMS ON AND AUDIBLE AND AMBU BAG AT SIDE OF VENT AND VENT IS PLUGGED INTO RED OUTLET , I\L TX GIVEN WITH DUONEB 3ML WITH NO ADVERSE REACTION POST TX B\S ARE CLEAR BILATERALLY, SXN PT MODERATE AMT OF THICK WHITE SECRETIONS, PT IS TRACH WITH PORTEX 8 AND SKIN INTEGRITY IS INTACT PT IS AWAKE AND ALERT WITH NO SIGNS OF DISTRESS NOTED
[2019-01-30 07:05] LABS: MAGNESIUM 2.2 mg/dL (1.8-2.4); PHOSPHORUS 3.7 mg/dL (2.5-4.9)
--- NOTE | 2019-01-30 07:31 | NUR ---
PT SLEEPING, NO DISTRESS NOTED, BEDSIDE REPORT GIVEN TO RN LEXI FOR CONTINUITY OF CARE.
--- NOTE | 2019-01-30 07:32 | NUR ---
RECEIVED BEDSIDE REPORT FROM CERTIFICATION TECHNICIAN NURSE. PT SLEEPING. PT APPEARS IN NO APPARENT DISTRESS. CALL LIGHT WITHIN REACH. ALL SAFETY MEASURES IN PLACE. WILL CONTINUE TO MONITOR.
[2019-01-30 08:00] VITALS: BP 97/56
--- NOTE | 2019-01-30 08:07 | NUR ---
changed vent settings to simv ps10
--- NOTE | 2019-01-30 08:28 | NUR ---
PERFORMED ASSESSMENT ON PT AND TOOK VITALS. PT COMPLAINS OF 10/10 PAIN IN UPPER RIGHT QUADRANT. ASSISTED PT WITH EATING. DR. FOUNTAIN ROUNDED AND SAID THEY WILL PERFORM AN ULTRASOUND OF THE ABD LATER TODAY. FAMILY AT BEDSIDE. PT SITTING UP TALKING W FAMILY.
[2019-01-30] MEDS: acetaZOLAMIDE 250 MG TAB GT SCH ×2 (09:00→21:05)
[2019-01-30] MEDS: METOPROLOL 25 MG TAB PO SCH ×2 (09:00→21:00)
[2019-01-30] MEDS: LISINOPRIL 5 MG TAB PO SCH (09:00)
[2019-01-30] MEDS: POTASSIUM CHLORIDE 20% 40 MEQ/15 ML UDC GT SCH ×2 (09:07→20:53)
[2019-01-30] MEDS: MIDODRINE 5 MG TAB GT PRN ×2 (09:07→20:54)
[2019-01-30] MEDS: LACTOBACILLUS RHAMNOSUS GG 1 EACH CAP PO SCH (09:09)
[2019-01-30] MEDS: ASPIRIN 81 MG TAB.CHEW PO SCH (09:09)
[2019-01-30] MEDS: SPIRONOLACTONE 25 MG TAB PO SCH (09:09)
[2019-01-30] MEDS: levETIRAcetam 100 MG/ML ORASYR GT SCH ×2 (09:12→20:54)
--- NOTE | 2019-01-30 09:36 | NUR ---
ADMINISTERED PO MEDICATIONS VIA GTUBE. HELD OFF ON BP MEDICATIONS BP 97/56. MORPHINE HELD. SON AT BEDSIDE NOT ALLOWING MORPHINE ADMINISTRATION. PT TOLERATED MEDICATIONS. SPEECH THERAPY AT BEDSIDE CHANGING PT TO THIN LIQUIDS AND PUREE DIET. Addendum: 01/30/19 at 0954 by Liseth Chamberlain RN OFFERED 1MG MORPHINE FOR 10/10 RIGHT UPPER ABD PAIN, SON REFUSES 1MG STATES, "IT'S TOO MUCH AND ZONK HER OUT AND SHE WILL GET ANXIOUS AND AGITATED THE MED WEARS OFF" SON WANTS TO GIVE HER 0.025MG OF MORPHINE ONLY . OFFERED NORCO INSTEAD BUT PT'S SON INSISTS THAT SHE SHOULD ONLY TAKE 0.025MG OF NORCO ONLY. SON DEMANDS TO SPEAK TO DOCTOR, DR GRANT NOTIFIED, MORPHINE AND NORCO HELD AT THIS TIME, PT AGREES WITH PLAN.
--- NOTE | 2019-01-30 10:10 | NUR ---
S.T. TREATMENT NOTE/DISHCARGE SUMMARY TIME: [id number] S: Pt seen at bedside with family present, as well as RNs Liseth and Nancy administering meds. Pt sitting upright at approx 75 degrees. Trach cuff deflated, FiO2 30%, Peep 5. Per nsg, pt tolerating current diet textures of puree and nectar thick liquids. Son at bedside stated that he was unaware of order for nectar thick liquids and "has been giving her plain water from her bedside table for the past 3 days" and observed pt being fed by nsg at breakfast with thin liquids. O: P.O. trials cranberry juice via straw sips, approx 20 cc total. A: Rn Liseth assisted with inline suctioning, yielding no evidence of red/pink color in secretions that were suctioned, visualized in clear tubing. P: Recommend continue pureed diet, advance liquids to thin liquids, DC nectar thick liquids. D/w nsg staff at bedside, as well as pt and family. All communicated understanding. Pt was seen for one eval and two treatment sessions, tolerating well. No further tx indicated at this time. Tx goals met at this time. DC to nsg care.
[2019-01-30] MEDS: HYDROcodone/APAP 5/325 MG 1 TAB TAB PO PRN (10:53)
--- NOTE | 2019-01-30 11:00 | NUR ---
DR. NGUYEN AT BEDSIDE. TALKED TO SON ABOUT PAIN MANAGEMENT AND PAIN MEDICATION. SON GAVE THE OK SO THE NORCO DOSAGE. NORCO MEDICATION ADMINISTERED PER ORDERS FOR R UPPER QUADRANT ABD PAIN 09/06. ORAL CARE PERFORMED. SUCTIONED PT. CHANGED AND ROTATED PT W HELP OF DEICER REPAIRER ELECTRIC.
--- NOTE | 2019-01-30 11:38 | NUR ---
Videotape Operator Note: I faxed inquiry to [facility]. Per Critsina from [facility][Note 2] , they might potentially have a female bed available by end of this week. No beds available at this time. I faxed inquiry to [facility]. Per Kim from [facility] , they don't have any beds available at this time. I left a message for PRICE Jorgensen at [facility], e-fax . [place] [facility] facilities: [facility], [facility], [facility], [facility], [facility], [facility], [facility], [facility], [facility], [facility], [facility], [facility], and [facility]. I faxed inquiry to [facility], fax . Per Kourtney from [facility] , no beds available at this time. I was informed by [facility] passenger service representative from [facility] ext [phone], he spoke with patient's son David Díaz and will initiate [facility] application today.
--- NOTE | 2019-01-30 11:40 | NUR ---
PT COMPLAINED ABOUT DIFFICULTY BREATHING. SON REQUEST FOR THE VENT TO BE CHANGED BACK TO AC MODE. RT WAS NOTIFIED.
--- NOTE | 2019-01-30 11:45 | NUR ---
CHANGED VENT SETTING BACK TO AC MODE FAMILY AT BEDSIDE PT WANTS TO REST
--- NOTE | 2019-01-30 11:50 | NUR ---
RT CHANGED VENT SETTINGS BACK TO AC MODE. SPO2 BACK TO 97%. PT IS RESTING COMFORTABLY. FAMILY AT BEDSIDE.
[2019-01-30 12:06] VITALS: BP 93/54
--- NOTE | 2019-01-30 12:30 | NUR ---
HELD LASIX BECAUSE BP 97/56 @0800 AND 93/54 @1200. LUNG SOUNDS WERE CLEAR
[2019-01-30] MEDS ORDERED: FURO-570 PO (12:54)
[2019-01-30] MEDS ORDERED: FURO-572 PO (12:54)
[2019-01-30] MEDS ORDERED: SPIR25TA PO (13:04)
[2019-01-30] MEDS ORDERED: METO25TA PO (13:04)
--- NOTE | 2019-01-30 13:14 | NUR ---
pt sleeping with no signs of distress noted at this time no hhn given
[2019-01-30] MEDS ORDERED: LACT10CA1 PO (13:22)
[2019-01-30] MEDS ORDERED: ZOS3.375I IV (13:22)
[2019-01-30] MEDS: ACETAMINOPHEN 325 MG TAB PO PRN (13:58)
--- NOTE | 2019-01-30 14:13 | NUR ---
PT COMPLAINED OF PAIN. GAVE TYLENOL PER ORDER. PT JUST FINISHED WITH PT. PT. REQUESTED SUCTION. SUCTIONED PT 2X. PT REQUESTED TO BE REPOSITIONED IN BED TO BE MORE COMFORTABLE. PT IN BED RESTING COMFORTABLY. WAITING FOR ULTRASOUND. ALL SAFETY MEASURES ARE IN PLACE. WILL CONTINUE TO MONITOR.
--- NOTE | 2019-01-30 14:29 | NUR ---
PER DIGNA THRASHERHORSERADISH MAKER DIRECTOR, THE PATIENT CAN GO TO [facility] WHEN DISCHARGED ROOM [address] UNDER DR[address] REYES. [facility], . PER EPI FROM [facility], AUTH FOR [facility], [id number] AND AUTH FOR [facility], [id number].
--- NOTE | 2019-01-30 14:31 | NUR ---
1140 SPOKE WITH GASPER IN ADMISSIONS AT [facility] REGARDING ACCEPTING PT FOR RETURN. STATED SHE WILL DISCUSS WITH ADMIN AND CALL BACK. 1147 CALL FROM GASPER AND SHE STATED THAT PT CAN RETURN TO ROOM 124B. 1230 CALLED SON CORKY AND SPOKE WITH HIM REGARDING PLAN FOR TRANSFER BACK TO [facility] THERE IS NO OTHER ACCEPTING FACILITY AT THIS TIME. HE VOICED HE HAD SOME CONCERNS REGARDING NURSING AT [facility]. I ADVISED HIM TO GO THROUGH THE CHAIN OF COMMAND WITH HIS CONCERNS. DISCUSSED WITH HIM THAT [facility] HAS INITIATED THE MCAL APPLICATION AND THAT WHEN PT IS ELIGIBLE FOR MCAL HE CAN REQUEST TRANSFER TO ANOTHER FACILITY THE BARRIER TO ACCEPTANCE AT OTHER FACILITIES IS THE LACK OF A SECONDARY COVERAGE. HE STATED THAT HE DOES UNDERSTAND AND WILL AGREE TO THE TRANSFER BUT WOULD RATHER SPEAK TO THE DR FIRST AND WOULD PREFER THAT THE TRANSFER BE TOMORROW PT IS GETTING AN US OF ABD TODAY. INFORMED DR MUELLER WHO SAID SHE WILL CALL CORKY AND DISCUSS DISCHARGE.
--- NOTE | 2019-01-30 15:55 | NUR ---
ULTRASOUND AT BEDSIDE DOING ABD ULTRASOUND. PT IS IN BED RESTING. NO SIGNS OF DISTRESS. WILL CONTINUE TO MONITOR
[2019-01-30 16:00] VITALS: BP 95/61
--- NOTE | 2019-01-30 16:30 | NUR ---
ULTRASOUND FINISHED W PT. PT ASKED FOR HER LUNCH. I ASSISTED THE PT W HER MEAL. REPOSITIONED AND TURNED THE PT. PT IS NOW RESTING COMFORTABLY IN BED. SO SIGNS OF DISTRESS. WILL CONTINUE TO MONITOR
--- NOTE | 2019-01-30 18:31 | NUR ---
REPOSITIONED PATIENT AND ASSITED WITH DINNER FEED. PT TOLERATED FEED WELL. SUCTIONED THE PATIENT PER HER REQUEST. PT IS RESTING COMFORTABLY IN BED. ALL SAFETY MEASURES ARE IN PLACE. WILL CONTINUE TO MONITOR. Addendum: 01/30/19 at 1836 by Nancy Saunders RN BOTH IV SITES INTACT, PATENT AND FLUSHED. TRUONG CATH IS DRAINING. TRACH TO VENT FIO2 @30%.
--- NOTE | 2019-01-30 19:12 | NUR ---
REPORT GIVEN TO CASE MANAGEMENT ASSISTANT NURSE. PT IS SLEEPING IN BED. NO APPARENT DISTRESS. FAMILY MEMBER JUST ENTERED ROOM.
--- NOTE | 2019-01-30 19:15 | NUR ---
RECEIVED PT ON BED ASLEEP, EASILY AROUSABLE TO TOUCH, AAOX4, ON TRACH TO VENT WITH FOLLOWING SETTING: FI02-30%, FLOW RATE-40, PEEP-5, TIDAL VOLUME-500, RATE-12, VITAL SIGNS TAKEN, BP ON THE LOW SIDE BUT STABLE, DENIES ANY PAIN, EDEMA NOTED TO BLE, IVF INFUSING WELL AT TKO RATE, G-TUBE IN PLACE, CLAMPED AT THIS TIME, TRUONG CATHETER TO GRAVITY WITH STRAW COLORED URINE, SAFETY PRECAUTION IN PLACE, WILL REPOSITION Q2H AND OFFLOAD PRESSURE AREAS, CALL LIGHT WITHIN REACH.
[2019-01-30 20:00] VITALS: BP 93/60
[2019-01-30] MEDS: ATORVASTATIN 20 MG TAB PO SCH (20:54)
--- NOTE | 2019-01-30 21:00 | NUR ---
10ML G-TUBE RESIDUAL NOTED, DUE MEDS CRUSHED AND GIVEN THRU G-TUBE, LASIX AND OTHER BP MEDICATION HELD DUE TO BP-93/60, TOLERATED WELL, ORAL CARE DONE USING VAP KIT, SUCTION SECRETION PRN, ALL NEEDS ATTENDED.
[2019-01-31] VITALS: BP 94/49
--- NOTE | 2019-01-31 | NUR ---
PT SLEEPING, OPEN EYES TO TOUCH, VITAL SIGNS TAKEN, BP LOW BUT STABLE, DENIES ANY PAIN, ZOSYN IVPB ADMINISTERED, REFUSED ORAL CARE AT THIS TIME, STATING "LATER", SUCTIONED SECRETION PRN, CONTINUE TO REPOSITION Q2H AND OFFLOAD PRESSURE AREAS, MONITORED CLOSELY.
[2019-01-31] MEDS: Z-GUARD PASTE TP SCH ×3 (01:08→23:46)
--- NOTE | 2019-01-31 02:37 | NUR ---
VENT ALARM HEARD, PT SUCTIONED TRACHEALLY AND ORALLY, PT WENT BACK TO SLEEP, MONITORED CLOSELY.
--- NOTE | 2019-01-31 03:36 | NUR ---
PT AWAKE REQUESTING TO BE SUCTIONED, RT LUCIO SUCTIONED THE PT, VITAL SIGNS TAKEN, BP ON THE LOW SIDE BUT STABLE, DENIES ANY PAIN, REQUEST IF SHE CAN HAVE WATER, TRACH CUFF DEFLATED, ICE WATER GIVEN WITH ASPIRATION PRECAUTION, TOLERATED WELL, OFFERED TO DO ORAL CARE BUT PT REFUSING AT THIS TIME STATING LATER, RISK AND BENEFITS EXPLAINED PT STILL STATING LATER, TRACH CUFF REINFLATED, MONITORED CLOSELY.
[2019-01-31 04:00] VITALS: BP 96/58
[2019-01-31] MEDS: FUROSEMIDE 20 MG/2 ML VIAL IVP SCH ×3 (04:43→20:58)
--- NOTE | 2019-01-31 05:00 | NUR ---
ORAL CARE GIVEN WITH VAP KIT, SUCTION SECRETION PRN, NO DISTRESS NOTED, MONITORED CLOSELY.
[2019-01-31] MEDS: PIPER/TAZO 3.375GM/D5W PREMIX 50 ML IV SCH ×4 (05:33→23:45)
--- NOTE | 2019-01-31 05:50 | NUR ---
X2 IV LINE DISCONTINUED WITH CANNULA INTACT, NEW IV LINE INSERTED ON RT HAND GAUGE 22, PT REFUSED TO BE REPOSITIONED AT THIS TIME, RISK AND BENEFITS EXPLAINED BUT PT STILL REFUSING, WILL ENDORSE TO AM NURSE, DUE PREVACID GIVEN THRU G-TUBE, TOLERATED WELL, NO DISTRESS NOTED, MONITORED CLOSELY.
[2019-01-31] MEDS: LANSOPRAZOLE 30 MG CAPDR GT SCH (05:53)
[2019-01-31 06:07] LABS: BASOPHILS # (AUTO) 0.1 K/uL (0.00-0.22); BASOPHILS % (AUTO) 2.2 % (0.0-2.0); EOSINOPHILS # (AUTO) 0.5 K/uL (0-0.4); EOSINOPHILS % (AUTO) 9.4 % (0.0-4.0); HEMATOCRIT 28.6 % (36-48); LYMPHOCYTES # (AUTO) 1.1 K/uL (2.5-16.5); LYMPHOCYTES % (AUTO) 19.4 % (20.5-51.1); MEAN CORPUSCULAR HEMOGLOBIN 26 pg (27-31); MEAN CORPUSCULAR HGB CONC 32 g/dL (33-37); MEAN CORPUSCULAR VOLUME 81.6 fL (80-94); MONOCYTES # (AUTO) 0.7 K/uL (0.8-1.0); MONOCYTES % (AUTO) 11.8 % (1.7-9.3); NEUTROPHILS # (AUTO) 3.2 K/uL (1.8-7.7); NEUTROPHILS % (AUTO) 57.2 % (42.2-75.2); PLATELET COUNT (AUTO) 233 K/uL (140-450); RED CELL DISTRIBUTION WIDTH 19.1 % (11.6-13.7); WHITE BLOOD COUNT (AUTO) 5.6 K/uL (4.8-10.8)
[2019-01-31 06:35] LABS: MAGNESIUM 2.1 mg/dL (1.8-2.4); PHOSPHORUS 3.2 mg/dL (2.5-4.9)
[2019-01-31 06:37] LABS: ANION GAP 13.7 (8-16); CARBON DIOXIDE 24.2 mmol/L (21-32); CHLORIDE 107 mmol/L (98-107); CREATININE 1.1 mg/dL (0.6-1.3); GLUCOSE 88 mg/dL (74-106); POTASSIUM 3.9 mmol/L (3.5-5.1); SODIUM SERUM 141 mmol/L (136-145); UREA NITROGEN, BLOOD 21 mg/dL (7-18)
--- NOTE | 2019-01-31 07:15 | NUR ---
PT AWAKE, NO DISTRESS NOTED, REPORT GIVEN TO PRICE CHOWDARY FOR CONTINUITY OF CARE.
--- NOTE | 2019-01-31 07:19 | NUR ---
RECEIVED BEDSIDE REPORT FROM HEALTH CARE LEGAL ASSISTANT RN. PT IS AWAKE, ON TRACH TO VENT. AOX4. ABLE TO FOLLOW COMMANDS. DENIES PAIN AND DISCOMFORT. BP ON LOW SIDE BUT AT PATIENT'S BASELINE. SKIN WARM, DRY, AND INTACT. PITTING EDEMA TO BLE, L>R. IV SITE PATENT AND ASYMPTOMATIC, ON TKO. G-TUBE IN PLACE AND CLAMPED. TRUONG CATH IN PLACE, DRAINING URINE. PT POSITIONED FOR COMFORT. ALL SAFETY PRECAUTIONS IN PLACE, WILL CONTINUE TO MONITOR.
[2019-01-31] MEDS: ALBUTEROL SULFATE/IPRATROPIU 3 ML SOL IH SCH ×3 (07:31→19:18)
--- NOTE | 2019-01-31 07:32 | NUR ---
RECIVED PT ON VENT WITH SETTINGS CHARTED BREATH SOUNDS PRESENT BILAT COARSE SXN PT WITH SMALL AMOUNT SECS WHITE TRACH SITE SECURE AMBU BAG AT BEDSIDE VENT PLUGGED INTO RED OUTLET WILL CONTINUE TO MONITOR PT ON VENT
[2019-01-31 08:00] VITALS: BP 98/47
[2019-01-31] MEDS: METOPROLOL 25 MG TAB PO SCH ×2 (09:00→20:59)
[2019-01-31] MEDS: LISINOPRIL 5 MG TAB PO SCH (09:00)
[2019-01-31] MEDS: POTASSIUM CHLORIDE 20% 40 MEQ/15 ML UDC GT SCH ×2 (09:11→20:58)
[2019-01-31] MEDS: levETIRAcetam 100 MG/ML ORASYR GT SCH ×2 (09:12→20:57)
[2019-01-31] MEDS: ASPIRIN 81 MG TAB.CHEW PO SCH (09:12)
[2019-01-31] MEDS: MIDODRINE 5 MG TAB GT PRN (09:12)
[2019-01-31] MEDS: SPIRONOLACTONE 25 MG TAB PO SCH (09:13)
[2019-01-31] MEDS: acetaZOLAMIDE 250 MG TAB GT SCH ×2 (09:13→20:57)
[2019-01-31] MEDS: LACTOBACILLUS RHAMNOSUS GG 1 EACH CAP PO SCH (09:13)
--- NOTE | 2019-01-31 09:45 | NUR ---
DR. GRANT DISCUSSED PT'S CONDITION AND POC WITH SON AT BEDSIDE. ANSWERED ALL QUESTIONS. SON VERBALIZED COMPLETE UNDERSTANDING. SCHEDULED MEDICATIONS ADMINISTERED.
[2019-01-31] MEDS ORDERED: LACT10CA1 PO (10:58)
[2019-01-31] MEDS ORDERED: ZOS3.375I IV (10:58)
--- NOTE | 2019-01-31 11:23 | NUR ---
pt requested not to go on simv on at bedside no resp distress noted
[2019-01-31 12:00] VITALS: BP 101/60
--- NOTE | 2019-01-31 14:02 | NUR ---
1015 MET WITH PATIENT AND SON AT BEDSIDE TO DISCUSS DISCHARGE PLAN TO [facility]. SON CORKY BECAME ANGRY AND SAID THAT THE DR TOLD HIM THAT PATIENT WOULD REMAIN AT [facility] FOR A FEW MORE DAYS. INFORMED HIM THAT IT WAS DISCUSSED IN MORNING MEETING THAT PATIENT WAS READY FOR DISCHARGE TO SUBACUTE LEVEL OF CARE. I DID REMIND HIM THAT WE SPOKE YESTERDAY AND THAT HE WAS IN AGREEMENT WITH PATIENT DISCHARGING TODAY. CORKY DEMANDED TO SPEAK WITH THE DR. 1030 DR GRANT MET WITH SON AND EXPLAINED TO HIM THAT PATIENT IS STABLE TO TRANSFER TO [facility] TO CONTINUE WITH IV ABX. SON BECAME ANGRY AND VOICED THAT HE DOES NOT THINK PATIENT IS READY TO GO. DR GRANT ATTEMPTED TO EXPLAIN PATIENTS CONDITIONS ARE CHRONIC AND ONCE THE ACUTE PHASE HAS BEEN MANAGED PATIENTS CONTINUED TREATMENT CAN BE MANAGED AT A SUBACUTE LEVEL OF CARE. SON BECAME ANGRY AND MAKING RUDE REMARKS TO DR GRANT AND THIS GATE GUARD. DCM INFORMED SON THAT IT IS THE PHYSICIANS DECISION IF A PATIENT IS STABLE FOR TRANSFER AND THAT THE DC ORDER HAS BEEN WRITTEN AND THAT HE CAN REQUEST A MEDICARE DISCHARGE APPEAL. SON CONTINUED TO VOICE HIS DISAPPROVAL AND BEGAN SPEAKING LOUDLY SO THE CONVERSATION WAS DISCONTINUED. APPROXIMATELY 10 MINUTES LATER CORKY APPROACHED THIS GATE GUARD AND REQUESTED TO TALK. AT THIS TIME HE HAD CALMED DOWN. HE SAID THAT HE FULLY UNDERSTANDS THAT DUE TO PATIENT DOESN'T HAVE MCAL HE UNDERSTANDS THAT [facility] IS THE ONLY ACCEPTING FACILITY AT THIS TIME. I INFORMED HIM THAT [facility] HAS EMPLOYED [facility] TO ASSIST HIM WITH THE MCAL APPLICATION PROCESS AND THAT ONCE THE PATIENT HAS MCAL HE CAN REQUEST ANOTHER SUBACUTE FACILITY. HE DID EXPRESS HIS APOLOGIES FOR BECOMING ANGRY AND EXPRESSED HIS CONCERNS FOR HIS MOTHER. INFORMED HIM THAT I WOULD REQUEST THAT THE CUSTOMER ACCOUNT SPECIALIST SPEAK TO HIM REGARDING HIS CONCERNS AND THAT HIS REACTION IS UNDERSTANDABLE HE DOES WANT WHAT IS BEST FOR HIS MOTHER. GAVE HIM MY CARD AND INFORMED HIM TO CALL IF HE HAS ANY OTHER QUESTIONS OR CONCERNS. CORKY WAS CALM AT THE END OF THE MEETING AND WAS TEARY EYED.
--- NOTE | 2019-01-31 14:10 | NUR ---
PT NOTE 1330 1ST ATTEMPT FOR PT TX IN AM, Pt REQUESTED TO BE SEEN LATER DUE TO BEING IN A COMFORTABLE POSITION AND WITH SON VISITING; Pt REFUSED 2ND ATTEMPT IN THE AFTERNOON DUE TO C/O PAIN ON ABD 05/07 BASED ON GAVIRIA-HUERTA SCALE; WILL FOLLOW UP WITH Pt TOMORROW; RN NOTIFIED.
--- NOTE | 2019-01-31 14:51 | NUR ---
DEVON JORDAN PER GASPER OF [facility] PH# [phone], NO BED AVAILABLE TODAY. DR. GRANT AWARE. DEVON HENAO. Addendum: 01/31/19 at 1527 by Debo Neri CM CALLED THE PATIENT'S SON CORKY MARRUFO PH# [phone] TO INFORM HIM OF NO AVAILABLE BED AT [facility] TODAY. DEVON HENAO.
[2019-01-31] MEDS ORDERED: POLYETHYLENE GLYCOL 17 GM/PKT PO SCH (15:12)
[2019-01-31 16:00] VITALS: BP 97/58
--- NOTE | 2019-01-31 17:23 | NUR ---
CONTINUED TO MONITOR PT ON VENT WITH SETTINGS ANTONIO CarlisleXN PT WITH MIN AMT OFF WHITE SECS TRACH SITE SECURE VENT PLUGGED INTO RED OUTLET AMBU BAG AT BEDSIDE
--- NOTE | 2019-01-31 17:37 | NUR ---
SCHEDULED MEDICATIONS ADMINISTERED. PT POSITIONED FOR COMFORT.
--- NOTE | 2019-01-31 19:39 | NUR ---
ENDORSED POC TO SPA RECEPTIONIST RN. PT IN STABLE CONDITION.
--- NOTE | 2019-01-31 19:40 | NUR ---
RECEIVED PT IN STABLE CONDITION FROM AM NURSE. AWAKE,ALERT AND ORIENTED X4. ON TRACH TO VENT. O2 SAT 98%. ON TELE MONITOR -SR. BEDBOUND . BUT ABLE TO MOVE BOTH ARMS. WITH EDEMA ON BOTH LOWER EXTREMITIES. HAS IF INFUSING WELL ON THE RT WRIST G#22. CLEAR AND PATENT. TRUONG CATH TO GRAVITY. GT N PLACED ,CLAMPED. PATENT . BED ON LOWEST POSITION. CALL LIGHT WITHIN EASY REACH. SIDE RAILS ARE PADDED. FREQUENT ROUNDS NEEDED. ABLE TO COMMUNICATE BY WRITING. WILL CONTINUE TO MONITOR.
[2019-01-31 20:00] VITALS: BP 107/64
[2019-01-31] MEDS: ATORVASTATIN 20 MG TAB PO SCH (20:59)
--- NOTE | 2019-01-31 21:00 | NUR ---
PT REFUSED TO BE REPOSITIONED. BUT ABLE TO SUCTION WITH SMALL AMOUNT OF WHTISH SECRETIONS. NO DISTRESS NOTED.
--- NOTE | 2019-01-31 22:50 | NUR ---
ATTEND TO PT FOR ANOTHER NURSE SAID SHE NEED SOMETHING FOR PAIN. WHEN ASKED SHE SAID NO PAIN AT THIS TIME. SHE JUST NEED TO BE CLEANUP.
--- NOTE | 2019-01-31 23:30 | NUR ---
REPOSITIONED FOR COMFORT. NO BM NOTED. BUTTOCKS JUST WITH WITH SLIGHT REDNESS NOTED . SKIN INTACT.
[2019-02-01] VITALS (7 sets, daily range): BP systolic 97–106; BP diastolic 43–68
--- NOTE | 2019-02-01 01:47 | NUR ---
MADE ROUNDS. PT IS ASLEEP. NO S/S OF ANY DISTRESS NOTED. WILL CONTINUE TO MONITOR.
--- NOTE | 2019-02-01 03:00 | NUR ---
REPOSITIONED FOR COMFORT. TURNED TO SIDE. NO RESPIRATORY DISTRESS NOTED.
--- NOTE | 2019-02-01 03:33 | NUR ---
RESTING WELL NO PULMONARY DISTRESS NOTED AT THIS TIME GOOD CHEST RISE DEEP TRACHEAL SUCTION FOR MODERATE SEMI THICK YELLOW SECRETIONS AIRWAY PATENT
--- NOTE | 2019-02-01 04:20 | NUR ---
AWAKE AND WANTS TO WATCH TV, ASSISTED PT TO CHANGE CHANNEL. NO C/O ANY DISCOMFORT NOTED.
[2019-02-01] MEDS: PIPER/TAZO 3.375GM/D5W PREMIX 50 ML IV SCH ×3 (05:23→17:10)
[2019-02-01] MEDS: FUROSEMIDE 20 MG/2 ML VIAL IVP SCH ×2 (05:23→12:51)
--- NOTE | 2019-02-01 05:26 | NUR ---
NO EVIDENCE OF RESPIRATORY DISTRESS NOTED GOOD CHEST RISE DEEP TRACHEAL SUCTION FOR SMALL THIN YELLOW SECRETIONS AIRWAY PATENT
[2019-02-01] MEDS: LANSOPRAZOLE 30 MG CAPDR GT SCH (05:28)
--- NOTE | 2019-02-01 06:00 | NUR ---
GT SITE CLEANSED WITH NS THEN APPLIED A NEW DRESSING. NO REDNESS NOR DRAINING NOTED.
[2019-02-01 06:59] LABS: BASOPHILS # (AUTO) 0.2 K/uL (0.00-0.22); BASOPHILS % (AUTO) 3.5 % (0.0-2.0); EOSINOPHILS # (AUTO) 0.3 K/uL (0-0.4); EOSINOPHILS % (AUTO) 6.5 % (0.0-4.0); HEMATOCRIT 28.3 % (36-48); HEMOGLOBIN 9.2 g/dL (12.0-16.0); LYMPHOCYTES # (AUTO) 0.9 K/uL (2.5-16.5); MEAN CORPUSCULAR HEMOGLOBIN 26 pg (27-31); MEAN CORPUSCULAR HGB CONC 33 g/dL (33-37); MEAN CORPUSCULAR VOLUME 80.5 fL (80-94); MONOCYTES # (AUTO) 0.6 K/uL (0.8-1.0); MONOCYTES % (AUTO) 12.3 % (1.7-9.3); NEUTROPHILS # (AUTO) 2.8 K/uL (1.8-7.7); NEUTROPHILS % (AUTO) 58.7 % (42.2-75.2); PLATELET COUNT (AUTO) 248 K/uL (140-450); RED BLOOD CELL COUNT(AUTO) 3.52 MIL/uL (4.20-5.40); RED CELL DISTRIBUTION WIDTH 18.4 % (11.6-13.7); WHITE BLOOD COUNT (AUTO) 4.8 K/uL (4.8-10.8)
[2019-02-01] MEDS: ALBUTEROL SULFATE/IPRATROPIU 3 ML SOL IH SCH ×2 (07:08→13:25)
--- NOTE | 2019-02-01 07:19 | NUR ---
RECEIVED BEDSIDE REPORT FROM RN ANTOINETTE. PT STABLE, AWAKE, AND ALERT AND ORIENTED X4. NO SIGNS OF DISTRESS NOTED. DENIES PAIN OR SOB. TRACH TO VENT, FI02 30%. NO REDNESS, SWELLING, OR INFLAMMATION NOTED ON IV SITE. BED IN LOWEST POSITION. CALL [place] WITHIN REACH. ASPIRATION PRECAUTION IN PLACE. SAFETY MEASURES IN PLACE. PLAN OF CARE REVIEWED.
--- NOTE | 2019-02-01 07:20 | NUR ---
RT INSIDE ROOM GIVING BREATHING TREATMENT . ENDORSED PT IN STABLE CONDITION TO AM NURSE.
[2019-02-01 08:18] LABS: CARBON DIOXIDE 23.6 mmol/L (21-32); CHLORIDE 106 mmol/L (98-107); GLUCOSE 87 mg/dL (74-106); POTASSIUM 3.6 mmol/L (3.5-5.1); SODIUM SERUM 140 mmol/L (136-145); UREA NITROGEN, BLOOD 18 mg/dL (7-18)
[2019-02-01] MEDS: SPIRONOLACTONE 25 MG TAB PO SCH ×2 (09:00→09:59)
[2019-02-01] MEDS ORDERED: POLYETHYLENE GLYCOL 17 GM/PKT PO SCH (09:00)
--- NOTE | 2019-02-01 09:15 | NUR ---
STABLE GOOD CHEST RISE DEEP TRACHEAL SUCTION FOR MODERATE THIN YELLOW SECRETIONS AIRWAY PATENT SON AT BEDSIDE REQUESTING CUFF DEFLATION FOR COMMUNICATION PURPOSES WITH MOTHER TJ/RN AWARE EXECUTIVE ASSOCIATE TO MONITOR
[2019-02-01] MEDS: levETIRAcetam 100 MG/ML ORASYR GT SCH (09:58)
[2019-02-01] MEDS: POTASSIUM CHLORIDE 20% 40 MEQ/15 ML UDC GT SCH (09:58)
[2019-02-01] MEDS: LACTOBACILLUS RHAMNOSUS GG 1 EACH CAP PO SCH (09:59)
[2019-02-01] MEDS: METOPROLOL 25 MG TAB PO SCH (10:00)
[2019-02-01] MEDS: LISINOPRIL 5 MG TAB PO SCH (10:00)
[2019-02-01] MEDS: ASPIRIN 81 MG TAB.CHEW PO SCH (10:00)
--- NOTE | 2019-02-01 10:00 | NUR ---
ADMINISETRED SCHEDULED MEDICATIONS. PT TOLERATED WELL. SCHEDULED HEPARIN AND ALDACTONE HELD PER PARAMETERS. SON AT THE BEDSIDE. IS AWARE.
--- NOTE | 2019-02-01 10:04 | NUR ---
Spoke with Mabel from [facility] no bed for the pt at this time. She will call once bed is available.
[2019-02-01] MEDS: acetaZOLAMIDE 250 MG TAB GT SCH (10:09)
[2019-02-01] MEDS ORDERED: ZOS3.375I IV (10:13)
--- NOTE | 2019-02-01 11:17 | NUR ---
ADMINISTERED SCHEDULED ZOSYN. PT TOLERATED WELL. PT REPOSITIONED. SON AT THE BEDSIDE.
--- NOTE | 2019-02-01 11:33 | NUR ---
REINFLATED CUFF PATIENT AND VENTILATOR ASSESSMENT NO EVIDENCE OF PULMONARY DISTRESS NOTED AT THIS TIME GOOD CHEST RISE DEFLATED CUFF FOR COMMUNICATING WITH SON AT BEDSIDE
[2019-02-01] MEDS: MIDODRINE 5 MG TAB GT PRN (12:50)
[2019-02-01] MEDS: Z-GUARD PASTE TP SCH (12:51)
--- NOTE | 2019-02-01 12:55 | NUR ---
SCHEDULED LASIX NOT ADMINISTERED DUE TO LOW BP OF 100/43. PRN MIDODRINE ADMINISTERED FOR LOW BP. WILL RECHECK BP.
--- NOTE | 2019-02-01 13:25 | NUR ---
STABLE GOOD CHEST RISE AND AERATION THROUGHOUT LUNG KAYE AIRWAY PATENT FAMILY MEMBER AT BEDSIDE
--- NOTE | 2019-02-01 13:36 | NUR ---
BP RECHECKED, BP UP TO 105/68, HR 72. GRANDSON AT THE BEDSIDE. NO OTHER NEEDS AT THIS TIME.
--- NOTE | 2019-02-01 14:38 | NUR ---
PT REPOSITIONED, LINENS CHANGED. NO OTHER NEEDS AT THIS TIME.
--- NOTE | 2019-02-01 14:38 | NUR ---
Hotel Or Motel Manager Note: Kodi Monroe from [facility] , they will either have a bed available today or tomorrow for patient, will let us know. Addendum: 02/01/19 at 1450 by Melissa Kelley SS I berkley Frias promotional representative Maximilian from [facility] ext [phone] is assisting patient's son David with [employer] application for patient.
--- NOTE | 2019-02-01 16:00 | NUR ---
RESTING WELL NO DISTRESS NOTED AT THIS TIME GOOD CHEST RISE DEEP TRACHEAL SUCTION FOR SMALL THIN PALE YELLOW SECRETIONS AIRWAY PATENT
--- NOTE | 2019-02-01 16:05 | NUR ---
CHANGED MODE TO SIMV FOR WEANING TRIAL TOLERATED SHEA SPENCER/PRICE NOTIFIED
--- NOTE | 2019-02-01 16:07 | NUR ---
Spoke with Mabel from [facility] pt is going to room 22B and the accepting MD is Dr. Rice.
--- NOTE | 2019-02-01 16:24 | NUR ---
Transportation arranged with [facility] AUTH #[id number]. Pt will be picked up from room 123 B at 2000 by [facility] with RT and transported to [facility] room 22 B and accepting MD is Dr. Rice, [address] [place] [address]. [phone]. . Darlene MCCAIN nurse informed pt's order picker/assembler time.
--- NOTE | 2019-02-01 16:57 | NUR ---
TOLERATING WEANING WITH NO APPARENT SOB NOTED GOOD CHEST RISE DEEP TRACHEAL SUCTION FOR SMALL THIN PALE YELLOW SECRETIONS AIRWAY PATENT
--- NOTE | 2019-02-01 17:00 | NUR ---
CALLED [facility] FOR REPORT, LINE IS BUSY. WILL CALL AGAIN.
[2019-02-01] MEDS: HYDROcodone/APAP 5/325 MG 1 TAB TAB PO PRN (17:09)
--- NOTE | 2019-02-01 17:10 | NUR ---
ADMINISTERED SCHEDULED ZOSYN AND PRN NORCO FOR 7/10 ABDOMINAL PAIN. NO OTHER NEEDS AT THIS TIME.
--- NOTE | 2019-02-01 17:44 | NUR ---
CALLED SON CORKY ON THE PHONE TO UPDATE REGARDING PT'S TRANSFER TO [facility] AT 2000 TONIGHT, 02/01/2019.
[2019-02-01] MEDS ORDERED: BISACODYL 5 MG TABEC PO SCH (18:00)
[2019-02-01] MEDS ORDERED: SIMETHICONE 40 MG/0.6 ML PO SCH (18:00)
[2019-02-01] MEDS ORDERED: BISACODYL 10 MG SUPP RC SCH (18:00)
--- NOTE | 2019-02-01 18:00 | NUR ---
TRIED TO CONTACT [facility] TO GIVE REPORT, FACILITY NOT ANSWERING. WILL TRY TO CALL AGAIN.
--- NOTE | 2019-02-01 19:00 | NUR ---
CALLED [facility] AGAIN FOR REPORT, LINE IS STILL BUSY. UNABLE TO REACH. CHARGE NURSE LEIGHA CALLED DR FOUNTAIN AND NOTIFIED LINE IS NOT WORKING FOR [address] FOUNTAIN GAVE US THE [facility] NUMBER AND REQUESTED TO CHECK THE PHONE OF [facility].
--- NOTE | 2019-02-01 19:30 | NUR ---
ENDORSED PT TO RN ANTOINETTE FOR CONTINUITY OF CARE. PT STABLE, AWAKE, AND ALERT. SON AT THE BEDSIDE. D/C INSTRUCTIONS AND PAPERWORK GIVEN TO PT AND [facility]. PERIPHERAL IV LEFT IN PLACE FOR FURTHER IV ANTIBIOTICS TO BE GIVEN AT [facility].
--- NOTE | 2019-02-01 19:49 | NUR ---
GAVE REPORT TO LATHA FROM [facility] FOR PT TO BE TRANSFERED.
--- NOTE | 2019-02-01 20:05 | NUR ---
PT DISCHARGE IN STABLE CONDITION WITH TRACH . WITH IV ACCESS RT HAND AND TRUONG CATHETER INTACT AND PATENT. TRANSPORTERS WITH ALL DISCHARGE PAPERS . CORKY SON STILL WITH PT UPON DISCHARGE. ONLY BELONGINGS IS A SMALL BEIGE PILLOW.
== END 2019-02-01 20:05 | DRG 207 ==
LOC: MED 13:41 → MIC 16:46 → MTU 01-28 09:50
PROVIDERS: ADMIT General Practice; ATTEND General Practice
PROC: 5A1955Z Respiratory Ventilation, Greater than 96 Consecutive Hours (ICD-10-PCS; principal; 2019-01-23)
DX: J96.21 Acute and chronic respiratory failure with hypoxia (principal); J69.0 Pneumonitis due to inhalation of food and vomit; I21.A1 Myocardial infarction type 2; I50.43 Acute on chronic combined systolic (congestive) and diastolic (congestive) heart failure; E43 Unspecified severe protein-calorie malnutrition; Z68.41 Body mass index [BMI] 40.0-44.9, adult; Z99.11 Dependence on respirator [ventilator] status; E72.20 Disorder of urea cycle metabolism, unspecified; M94.0 Chondrocostal junction syndrome [Tietze]; Z87.891 Personal history of nicotine dependence; Z93.0 Tracheostomy status; E11.9 Type 2 diabetes mellitus without complications; E66.9 Obesity, unspecified; I11.0 Hypertensive heart disease with heart failure; I48.91 Unspecified atrial fibrillation; J44.9 Chronic obstructive pulmonary disease, unspecified; R13.10 Dysphagia, unspecified; Z93.1 Gastrostomy status; Z96.642 Presence of left artificial hip joint; Z96.651 Presence of right artificial knee joint; G40.909 Epilepsy, unspecified, not intractable, without status epilepticus; I95.9 Hypotension, unspecified; K21.9 Gastro-esophageal reflux disease without esophagitis; Z74.01 Bed confinement status; E87.6 Hypokalemia
CPT/HCPCS: 36415; 36600; 51702; 71045; 76604; 76700; 80048; 80053; 80076; 81001; 82140; 82150; 82803; 82948; 83036; 83690; 83735; 83880; 84100; 84443; 84484; 85025; 85610; 85730; 87070; 87081; 87186; 87205; 89220; 90732; 92526; 93005; 94003; 94640; 97110; 97116; 97530; 99291; J1644; J1940; J2001; J2060; J2270; J2405; J2543; J3480; J7030; J7620; J8597; P9046; Q0092